=== PATIENT | female | born 1980 | race Caucasian/White ===

== ENCOUNTER 2016-09-14 21:33 | Emergency (ER) | payer OTHER ==
[~2016-09-14] VITALS: Ht 170.2 cm; Wt 103.2 kg
[~2016-09-14 21:33] MED LIST: PRENTAB26 PO
[2016-09-14 21:39] VITALS: TEMP 37.5; Ht 170.2 cm; Wt 103.2 kg
[2016-09-14] MEDS ORDERED: DiphenhydrAMINE HCL 50 MG/ML VIAL IV STA (22:00)
[2016-09-14] MEDS ORDERED: MoRPHine SULFATE 10 MG/ML CARP/VIAL IV STA (22:00)
[2016-09-14] MEDS ORDERED: SODIUM CHLORIDE 0.9% 1000ML 1,000 ML IV ONE (22:00)
[2016-09-14] MEDS ORDERED: METHYLPREDNISOLONE 125 MG VIAL IV STA (22:00)
[2016-09-14 22:11] LABS: BASO % 0.2 %; BASO ABS # 0.02 K/uL (0-0.2); COMPLETE YES; EOS % 1.5 %; HEMATOCRIT 41.2 % (37-47); IG% 0.2 %; LYMPH % 20.1 %; LYMPH ABS # 1.84 K/uL (1.2-3.4); MEAN CELL VOLUME 82.7 fL (80-100); MEAN CORPUSCULAR HEMOGLOBIN 28.5 pg (25-34); MEAN CORPUSCULAR HGB CONC 34.5 g/dl (32-36); MEAN PLATELET VOLUME 9.5 fL (7.4-10.4); MONO % 8.2 %; NEUT % 69.8 %; PLATELET COUNT 245 K/uL (130-400); RED BLOOD COUNT 4.98 M/uL (4.2-5.4); WHITE BLOOD COUNT 9.14 K/uL (4.8-10.8)
[2016-09-14] MEDS ORDERED: NITROGLYCERIN 0.4% PO (22:27)
[2016-09-14] MEDS ORDERED: IBUP-1450 PO (22:27)
[2016-09-14] MEDS ORDERED: MULT-513 PO (22:27)
[2016-09-14] MEDS ORDERED: MISCCAP80 PO (22:27)
[2016-09-14 22:31] LABS: BUN/CREATININE RATIO 12.4 (10-20); CALCIUM 9.1 mg/dl (8.5-10.1); CREATININE 0.99 mg/dl (0.60-1.20); POTASSIUM 3.5 mmol/L (3.5-5.1)
[2016-09-14] MEDS ORDERED: OXYCODONE IR HOME PACK PO ONE (23:45)
[2016-09-14] MEDS ORDERED: LIDOCAINE HCL 2% JELLY 30 ML TUBE EXT ONE (23:45)
[2016-09-14] MEDS ORDERED: PRED50TA PO (23:47)
[2016-09-14] MEDS ORDERED: OXYC1TAB3 PO (23:47)
[2016-09-14 23:49] VITALS: BP 119/69; PULSE 82; O2SAT 98
--- NOTE | 2016-09-15 03:31 | EMERGENCY ROOM VISIT NOTE ---
History First contact with patient: 21:47 Chief Complaint: RECTAL PAIN Stated Complaint: PAIN FROM RECTAL FISSURE Nursing Triage Summary: Patient reports seeing her PCP yesterday for an anal fissure. Patient was given an ointment for on it. Patient began using the ointment and tucks pads for relief. Patient's labia started swelling today and she has noted reddened and raised lumps on them. Patient very anxious, states "I feel like I'm gonna loose my shit right now. I am in so much pain it's ridiculous." No vaginal discharge or bleeding noted. History of Present Illness The patient is a 36 year old female who presents to the Emergency Room with complaints of rectal pain for the past week. The patient has a history of anal fissures in the past, and states that she has had similar consistent with this past week. She went to her primary care physician yesterday, where it was confirmed that she had an anal fissure. She was given a nitroglycerin based cream for her symptoms. The patient has been using this, Desitin, tucks, sitz baths, and a and D ointment. She states today she developed labial pain and swelling. The patient rates her overall discomfort a 10/10. She is not experiencing chest pain, chest tightness, shortness of breath, or abdominal pain. Her symptoms worsen with bowel movements and palpation in the area. She does not identify alleviating factors. Review of Systems More than 10 systems were reviewed and otherwise negative with the exception of history of present illness. Past Medical/Surgical History No chronic medical disease Family History No pertinent family history Social History Smoking Status: Never Smoker Housing Status: lives with family Occupation Status: employed Current/Historical Medications Scheduled Multivitamins/Minerals (Mvi With Minerals), 1 TAB PO WK Oxycodone Immediate Rel Tab (Roxicodone Ir), 1-2 TAB PO Q6 Prednisone (Prednisone), 50 MG PO DAILY Probiotic Product (Probiotic), 1 CAP PO DAILY [Nitro 0.4% Rectal Cr], 1 APPLN PO BID Scheduled PRN Ibuprofen (Motrin), 600 MG PO Q6H PRN for Pain Physical Exam Vital Signs Date Time Temp Pulse Resp B/P (MAP) Pulse Ox O2 Delivery O2 Flow Rate FiO2 09/14/16 23:49 82 17 119/69 98 09/14/16 23:20 82 16 119/69 97 Room Air 09/14/16 21:39 37.5 125 18 144/94 99 Room Air Pain Rating (0-10): 4.0 Physical Exam VITALS: Vitals are noted on the nurse's note and reviewed by myself. Vital signs stable. GENERAL: Well-developed, well-nourished, white female who appears quite uncomfortable on examination. HEART: Regular rate and rhythm without murmurs gallops or rubs. LUNGS: Clear to auscultation bilaterally without wheezes, rales or rhonchi. No retractions or accessory muscle use. ABDOMEN: Positive normal bowel sounds x 4. Soft, nontender, without masses or organomegaly. No guarding or rebound tenderness. : Examination was performed in the presence of female nurse sampling theory teacher. The perianal region is with obvious fissure at 6:00 measuring approximately 3-4 mm in length. There is no active bleeding or hemorrhoids. The bilateral labia's are erythematous with the left being slightly edematous. These areas are tender on palpation without obvious abscess. This is most concerning for a contact dermatitis. No other lesions or ulcerations were appreciated. MUSCULOSKELETAL: No muscle atrophy, erythema, or edema noted. Full range of motion without joint tenderness in all extremities. Medical Decision & Procedures Laboratory Results 09/14/16 22:01 Red Blood Count 4.98, Mean Corpuscular Volume 82.7, Mean Corpuscular Hemoglobin 28.5, Mean Corpuscular Hemoglobin Concent 34.5, Mean Platelet Volume 9.5, Neutrophils (%) (Auto) 69.8, Lymphocytes (%) (Auto) 20.1, Monocytes (%) (Auto) 8.2, Eosinophils (%) (Auto) 1.5, Basophils (%) (Auto) 0.2, Neutrophils # (Auto) 6.37, Lymphocytes # (Auto) 1.84, Monocytes # (Auto) 0.75, Eosinophils # (Auto) 0.14, Basophils # (Auto) 0.02 09/14/16 22:01 Test 09/14/16 22:01 White Blood Count 9.14 K/uL (4.8-10.8) Red Blood Count 4.98 M/uL (4.2-5.4) Hemoglobin 14.2 g/dL (12.0-16.0) Hematocrit 41.2 % (37-47) Mean Corpuscular Volume 82.7 fL (80-100) Mean Corpuscular Hemoglobin 28.5 pg (25-34) Mean Corpuscular Hemoglobin Concent 34.5 g/dl (32-36) Platelet Count 245 K/uL (130-400) Mean Platelet Volume 9.5 fL (7.4-10.4) Neutrophils (%) (Auto) 69.8 % Lymphocytes (%) (Auto) 20.1 % Monocytes (%) (Auto) 8.2 % Eosinophils (%) (Auto) 1.5 % Basophils (%) (Auto) 0.2 % Neutrophils # (Auto) 6.37 K/uL (1.4-6.5) Lymphocytes # (Auto) 1.84 K/uL (1.2-3.4) Monocytes # (Auto) 0.75 K/uL (0.11-0.59) Eosinophils # (Auto) 0.14 K/uL (0-0.5) Basophils # (Auto) 0.02 K/uL (0-0.2) RDW Standard Deviation 40.0 fL (36.4-46.3) RDW Coefficient of Variation 13.3 % (11.5-14.5) Immature Granulocyte % (Auto) 0.2 % Immature Granulocyte # (Auto) 0.02 K/uL (0.00-0.02) Anion Gap 11.0 mmol/L (3-11) Est Creatinine Clear Calc Drug Dose 96.1 ml/min Estimated GFR () 84.4 Estimated GFR (Non- 72.8 BUN/Creatinine Ratio 12.4 (10-20) Calcium Level 9.1 mg/dl (8.5-10.1) Total Bilirubin 0.6 mg/dl (0.2-1) Aspartate Amino Transf (AST/SGOT) 14 U/L (15-37) Alanine Aminotransferase (ALT/SGPT) 24 U/L (12-78) Alkaline Phosphatase 103 U/L (45-117) Total Protein 7.7 gm/dl (6.4-8.2) Albumin 3.8 gm/dl (3.4-5.0) Globulin 3.9 gm/dl (2.5-4.0) Albumin/Globulin Ratio 1.0 (0.9-2) Medications Administered Medications (Trade) Dose Ordered Sig/Joss Route Start Time Stop Time Status Last Admin Dose Admin Diphenhydramine HCl (Benadryl Inj) 25 mg NOW STAT IV 09/14/16 22:00 09/14/16 22:01 DC 09/14/16 22:19 25 MG Morphine Sulfate (MoRPHine SULFATE INJ) 8 mg NOW STAT IV 09/14/16 22:00 09/14/16 22:01 DC 09/14/16 22:20 8 MG Sodium Chloride 1,000 ml @ 999 mls/hr Q1H1M ONCE IV 09/14/16 22:00 09/14/16 23:00 DC 09/14/16 22:19 999 MLS/HR Methylprednisolone Sodium Succinate (Solu-Medrol IV) 125 mg NOW STAT IV 09/14/16 22:00 09/14/16 22:01 DC 09/14/16 22:20 125 MG Lidocaine HCl (Xylocaine Jelly 2%) 30 ml NOW ONCE EXT 09/14/16 23:45 09/14/16 23:46 DC 09/14/16 23:50 30 ML Oxycodone HCl (Roxicodone Immediate Rel 5MG Home Pack) 1 homepack UD ONCE PO 09/14/16 23:45 09/14/16 23:46 DC 09/14/16 23:51 1 HOMEPACK ED Course Physical exam and history were performed. Nursing notes, EMR, and Medication List were personally reviewed. Patient appears to have both an anal fissure as well as irritation of her labia' s. The patient is quite uncomfortable on examination. She is afebrile and has been using multiple treatments for her symptoms. On examination my concern is that she has a contact dermatitis from one of her home remedies causing her labial irritation. IV access was established and labs were obtained. The patient was hydrated with normal saline and given IV morphine, IV Benadryl, and IV Solu-Medrol. The patient's blood work is as above and was reviewed. She does not have a slightly elevated white blood cell count, gross anemia, bandemia, or significant electrolyte imbalance. On repeat exam the patient felt much better after the above interventions. Her pain was down to a 4 and she was much more relaxed. She reported decreased pain and swelling in her labia. I overall feel the patient is stable for discharge home. I suspect that much of her symptoms are related to the anal fissure and a contact dermatitis from the treatment utilized to help this. I will provide her a small amount of lidocaine gel for symptomatic care of her fissure. We'll also give her OxyIR and a course of steroids. The patient will need to have close follow-up with her primary care physician. Evidently she also has an upcoming appointment with GI, and this is appropriate as well. The patient was certainly invited back to the ER with any new, worsening, or concerning symptoms. She voiced understanding and was discharged home under the care of her who is acting as the otr refrigerated cdl truck driver today. The chart was completed utilizing [employer] Speech Voice Recognition Software. Grammatical errors, random word insertions, pronoun errors, and incomplete sentences are an occasional consequence of this system due to software limitations, ambient noise, and hardware issues. Any formal questions or concerns about the content, text, or information contained within the body of this dictation should be directly addressed to the provider for clarification. . Medical Decision Differential diagnosis includes, but is not limited to: Laceration, abrasion, foreign body, fistula, pilonidal abscess, contact dermatitis, [employer]YWALL [employer]IC etiology, and others Medication Reconcilliation Current Medication List: was personally reviewed by me Blood Pressure Screening Blood pressure disposition: Elevated BP felt to be situational Impression Primary Impression: Acute anal fissure Additional Impression: Contact dermatitis Departure Information Dispostion Home / Self-Care Condition GOOD Prescriptions Prednisone (Prednisone) 50 Mg Tab 50 MG PO DAILY for 4 Days, #4 TAB Prov: Kevin Virk PA-C 09/14/16 Oxycodone Immediate Rel Tab (ROXICODONE IR) 5 Mg Tab 1-2 TAB PO Q6 for Pain, #24 TAB Prov: Kevin Virk PA-C 09/14/16 Forms HOME CARE DOCUMENTATION FORM, Work Instructions, Additional Instructions: Patient was seen and evaluated today in the emergency department fo medical care. Return to work on 09/17/2016. Please excuse. IMPORTANT VISIT INFORMATION Patient Instructions [facility] Additional Instructions You were seen and evaluated today on an emergency basis only. This is not a substitute for, or an effort to provide, complete comprehensive medical care. It is not possible to recognize and treat all injuries or illnesses in a single emergency department visit. For this reason it is recommended that you followup with your primary care physician and gastroenterology this week for further care and management. For baseline pain relief you may alternate ibuprofen and acetaminophen every 4 hours for pain control. Take 600 mg ibuprofen (Advil) and then 4 hours later take 1000 mg acetaminophen (Tylenol). Do not take more than 3000 mg acetaminophen in a single day. Oxycodone (OxyIR) 5mg: Take ONE or TWO pills every SIX hours for breakthrough pain. Avoid alcohol, operating machinery or dangerous equipment, working on ladders or roofs, DRIVING, or situations where being under the influence may be dangerous. It is recommended to use an [id number] stool softener such as Colace, 100mg twice daily while taking this medication to avoid constipation. You may apply lidocaine jelly 3 times daily as needed. Use mycd-rbn-upsnqhs Benadryl 50 mg every 6 hours Take prednisone as prescribed for the next 4 days You are welcome to return to the emergency department anytime with new, worsening, or concerning symptoms. Work Instructions Additional Work Instructions: Patient was seen and evaluated today in the emergency department for medical care. Return to work on 09/17/2016. Please excuse. Problem Qualifiers
[2016-12-05] MEDS ORDERED: MULT-506 PO (08:37)
== END 2016-09-14 23:54 | disposition home or self-care (01) ==
LOC: C.EDB 21:34 → C.EDC 23:54
DX: K60.0 Acute anal fissure (principal); L25.9 Unspecified contact dermatitis, unspecified cause

== ENCOUNTER → 2016-10-22 | Outpatient (CLI) | payer OTHER ==
[~2016-10-22] MED LIST changes: +IBUP-1450 PO; +MISCCAP80 PO; +MULT-506 PO; +MULT-513 PO; +NITROGLYCERIN 0.4% PO; +OXYC1TAB3 PO; -PRENTAB26 PO
== END | disposition home or self-care (01) ==
LOC: C.LABSPEC 17:44
PROVIDERS: ATTEND Physician Assistant
DX: L29.8 Other pruritus (principal)

== ENCOUNTER → 2017-01-19 | Day surgery (SDC) | payer OTHER ==
[2016-12-05 08:37] VITALS: Ht 171.5 cm; Wt 102.3 kg
[~2017-01-19] VITALS: Ht 171.5 cm; Wt 102.3 kg
[~2017-01-19] MED LIST changes: -IBUP-1450 PO; -MISCCAP80 PO; -MULT-513 PO; -NITROGLYCERIN 0.4% PO; -OXYC1TAB3 PO; +PROPOFOL IV EMULSION 10 MG/ML 20 ML VIAL IV ONE
--- NOTE | 2017-01-19 13:19 | Endo History and Physical ---
History & Physical Date of Service: Jan 19, 2017. Chief Complaint: Diarrhea Referring Physician: Dr. Fatou Bernstein History of Present Illness 36 yo CF who presents for colonoscopy secondary to diarrhea. Past Surgical History Hx Cardiac Surgery: No Hx Internal Defibrillator: No Hx Pacemaker: No Hx Abdominal Surgery: No Hx of Implantable Prosthesis: No Hx Post-Op Nausea and Vomiting: No Hx Cancer Surgery: No Hx Thoracic Surgery: No Hx Orthopedic: No Hx Urinary Tract Surgery: No Family History Colon CA, Polyp Social History Smoking Status: Never Smoker Hx Substance Use: No Allergies Coded Allergies: Penicillins (Verified Allergy, Intermediate, HIVES, 12/05/16) Current Medications Reported Home Medications Medications Dose Route/Sig Max Daily Dose Days Date Category Multivitamin (Multivitamins) Tab 1 Tab PO 2XWK 12/05/16 Reported Vital Signs Weight (Kilograms): 102.27 Height (Feet): 5 Height (Inches): 7.5 Date Time Temp Pulse Resp B/P (MAP) Pulse Ox O2 Delivery O2 Flow Rate FiO2 01/19/17 12:58 37 100 18 149/81 (103) 99 Room Air Physical Exam General Appearance: WD/WN, no apparent distress Respiratory/Chest: Auscultation: breath sounds normal Cardiovascular: Heart Auscultation: RRR Abdomen: Bowel Sounds: normal Inspection & Palpation: soft, non-distended, no tenderness, guarding & rebound Assessment and Plan Assessment: 36 yo CF who presents for colonoscopy secondary to diarrhea. Plan: Proceed with colonoscopy.
--- NOTE | 2017-01-19 14:01 | Discharge Instructions ---
Endoscopy Patient Instructions Date / Procedure(s) Performed Jan 19, 2017. Colonoscopy Allergy Information Coded Allergies: Penicillins (Verified Allergy, Intermediate, HIVES, 12/05/16) Discharge Date / Findings Jan 19, 2017. Random colon biopsies Stool aspirate collected Internal hemorrhoids Medication Instructions Stopped Medication(s): mvi OK to resume all medications today as prescribed Reported Home Medications Medications Dose Route/Sig Max Daily Dose Days Date Category Multivitamin (Multivitamins) Tab 1 Tab PO 2XWK 12/05/16 Reported Provider Instructions Activity Restrictions - No exercising or heavy lifting for 24 hours. - Do not drink alcohol the day of the procedure. - Do not drive a car or operate machinery until the day after the procedure. - Do not make any important decisions or sign important papers in 24 hours after the procedure. Following Day: - Return to full activity which may include returning to work/school. Diet Start your diet with liquids and light foods (jello, soup, juice, toast). Then eat your usual diet if not nauseated. Treatment For Common After Affects For mild abdominal pain, bloating, or excessive gas: - Rest - Eat lightly - Lie on right side Follow-Up Information Follow-up with Dr. Fatou Bernstein as scheduled Anesthesia Information What You Should Know You have had a procedure that required some medicine to reduce anxiety and discomfort. This treatment is called moderate sedation. After receiving the treatment, you may be sleepy, but you will be able to breathe on your own. The effects of the treatment may last for several hours. Follow these instructions along with Activity/Diet recommendations noted above: * Do NOT do anything where dizziness or clumsiness would be dangerous. * Rest quietly at home today, then you can be up and about tomorrow. * Have a responsible person stay with you the rest of today. * You may have had an I.V. today. If so, you may take the dressing off later today. Recommendations Call your doctor if: * Trouble breathing * Continuous vomiting for more than 24 hours * Temperature above 101 degrees * Severe abdominal pain or bloating * Pain not relieved by pain medicine ordered * There is increased drainage or redness from any incision * A large amount of rectal bleeding greater than 2-3 tablespoons. (If you had a polyp/s removed or have hemorrhoids, a small amount of blood - from the rectum is to be expected.) * You have any unanswered questions or concerns. IN THE EVENT OF A SERIOUS EMERGENCY, GO TO THE NEAREST EMERGENCY ROOM Your discharge instructions were prepared by provider Dayne Dean. Patient Instructions Signature Page Mae Jones Patient (or Guardian) Signature/Date: I have read and understand the instructions given to me by my caregivers. Caregiver/RN/Doctor Signature/Date: The above-named patient and/or guardian has received patient instructions on this date. + Original Patient Signature Page (only) stays with chart. Please make copy for patient.
--- NOTE | 2017-01-19 14:13 | GI REPORT ---
Procedure Date: 01/19/2017 1:28 PM Procedure: Colonoscopy Indications: Chronic diarrhea Medicines: Monitored Anesthesia Care Complications: No immediate complications. Estimated Blood Loss: Estimated blood loss: none. Procedure: Pre-Anesthesia Assessment: - Prior to the procedure, a History and Physical was performed, and patient medications and allergies were reviewed. The patient's tolerance of previous anesthesia was also reviewed. The risks and benefits of the procedure and the sedation options and risks were discussed with the patient. All questions were answered, and informed consent was obtained. Prior Anticoagulants: The patient has taken no previous anticoagulant or antiplatelet agents. ASA Grade Assessment: II - A patient with mild systemic disease. After reviewing the risks and benefits, the patient was deemed in satisfactory condition to undergo the procedure. After I obtained informed consent, the scope was passed under direct vision. Throughout the procedure, the patient's blood pressure, pulse, and oxygen saturations were monitored continuously. The scope was introduced through the anus and advanced to the terminal ileum. The colonoscopy was performed without difficulty. The patient tolerated the procedure well. The quality of the bowel preparation was good. The terminal ileum, ileocecal valve, appendiceal orifice, and rectum were photographed. Findings: The perianal and digital rectal examinations were normal. Non-bleeding internal hemorrhoids were found during retroflexion. The hemorrhoids were small. Several random biopsies were obtained with cold forceps for histology in the entire colon. Fluid aspiration for cytology was performed in the entire colon. Impression: - Non-bleeding internal hemorrhoids. - Several random biopsies were obtained in the entire colon. - Fluid aspiration was performed. Recommendation: - Resume previous diet. - Continue present medications. - Repeat colonoscopy for surveillance based on pathology results. - Return to primary care physician as previously scheduled. Dayne Dean DO 01/19/2017 2:13:10 PM This report has been signed electronically. Note Initiated On: 01/19/2017 1:28 PM I attest to the content of the Intraoperative Record and orders documented therein, exceptions below
[2017-01-19 14:25] VITALS: BP 117/90; PULSE 90; O2SAT 97
--- NOTE | 2017-01-19 14:41 | Anesthesiology Progress Note ---
Anesthesia Post Op Note Date & Time Jan 19, 2017 at 14:40 Vital Signs Pain Intensity: 0 Vital Signs Past 12 Hours Date Time Temp Pulse Resp B/P (MAP) Pulse Ox O2 Delivery O2 Flow Rate FiO2 01/19/17 14:25 90 16 117/90 (99) 97 Room Air 01/19/17 14:10 83 16 125/70 (88) 95 Room Air 01/19/17 13:55 80 16 120/77 (91) 97 Room Air 01/19/17 12:58 37 100 18 149/81 (103) 99 Room Air Notes Mental Status: alert / awake / arousable, participated in evaluation Pt Amnestic to Procedure: Yes Nausea / Vomiting: adequately controlled Pain: adequately controlled Airway Patency, RR, SpO2: stable & adequate BP & HR: stable & adequate Hydration State: stable & adequate Anesthetic Complications: no major complications apparent
== END | disposition home or self-care (01) ==
LOC: C.GI 12:32
PROVIDERS: ATTEND Internal Medicine
DX: K52.9 Noninfective gastroenteritis and colitis, unspecified (principal); K64.8 Other hemorrhoids; Z80.0 Family history of malignant neoplasm of digestive organs

== ENCOUNTER → 2017-09-14 | Outpatient (CLI) | payer OTHER ==
[~2017-09-14] MED LIST changes: +CIPR1TAB10 PO; -MULT-506 PO; +OXYC7.5T65 PO; +PHEN-775 PO; -PROPOFOL IV EMULSION 10 MG/ML 20 ML VIAL IV ONE; +SACC250C PO; +SULI200T4 PO; +TAMS0.4C38 PO
--- NOTE | 2017-09-14 12:26 | DIAGNOSTIC IMAGING REPORT ---
KUB CLINICAL HISTORY: Nephrolithiasis. COMPARISON STUDY: CT of the abdomen and pelvis September 03, 2017 and KUB September 05, 2017. FINDINGS: A right ureteral stent is in place. A 4 mm calculus/fragment is noted within the proximal right ureter or ureteropelvic junction. No additional ureteral calculi or fragments are noted. Calculus burden is diminished when compared to exam of September 05, 2017. A 3 mm calculus within lower pole of the left kidney is noted. There may be calculi/fragments within the lower pole of the right kidney. IMPRESSION: 1. Right ureteral stent in place. 4 mm calculus/fragment within the proximal right ureter. No additional ureteral calculi or fragments. 2. Interval decrease in calculus burden since exam of September 05, 2017. Equivocal fragments within lower pole of the right kidney. 4. 3 mm left renal calculus. Electronically signed by: Andrey Najera M.D. 09/14/2017 12:24 PM Dictated Date/Time: 09/14/2017 12:22 PM
== END | disposition home or self-care (01) ==
LOC: C.RAD 10:18
PROVIDERS: ATTEND Urology
DX: N20.2 Calculus of kidney with calculus of ureter (principal)

== ENCOUNTER → 2017-09-17 | Outpatient (CLI) | payer OTHER ==
[~2017-09-17] MED LIST changes: +KETO10TA PO
== END | disposition home or self-care (01) ==
LOC: C.LAB 13:19
PROVIDERS: ATTEND Nurse Practitioner Adult Health
DX: R39.15 Urgency of urination (principal)

== ENCOUNTER → 2017-09-18 | Outpatient (CLI) | payer OTHER ==
--- NOTE | 2017-09-18 16:01 | DIAGNOSTIC IMAGING REPORT ---
KUB CLINICAL HISTORY: Ureteral calculus COMPARISON STUDY: 09/14/2017 FINDINGS: There has been interval removal of the right-sided nephroureteral stent. There is no pathologic bowel dilatation. There is a 3 mm calcific density projected over the right L3 transverse process. A small ureteral calculus cannot be excluded. The renal shadows are partially obscured overlying bowel gas and fecal material. There is a 2 mm lower pole left renal calculus. IMPRESSION: 1. No evidence of pathologic bowel dilatation 2. Left-sided nephrolithiasis 3. Interval removal of the right-sided neck ureteral stent 4. Nonspecific 3 mm calcific density projected over the right L3 transverse process. A ureteral calculus cannot be excluded. Electronically signed by: Steven Taylor M.D. 09/18/2017 4:00 PM Dictated Date/Time: 09/18/2017 3:59 PM
--- NOTE | 2017-09-18 16:36 | DIAGNOSTIC IMAGING REPORT ---
RENAL ULTRASOUND CLINICAL HISTORY: Ureteral stone. COMPARISON STUDY: CT of the abdomen and pelvis September 03, 2017 and KUB September 14, 2017. TECHNIQUE: Sonography of the kidneys and the urinary bladder was performed. FINDINGS: Moderate right hydronephrosis is noted. There is no left hydronephrosis. The right kidney measures 13 cm in maximal dimension and the left measures 13 cm as well. There is no left hydronephrosis. Both ureteral jets were identified. A few left renal calculi measure up to 3 mm. Right renal calculus is noted. There may be a 4 mm proximal right ureteral calculus. IMPRESSION: 1. Moderate right hydronephrosis with a suspected 4 mm proximal right ureteral calculus. 2. Bilateral nephrolithiasis. Electronically signed by: Andrey Najera M.D. 09/18/2017 4:34 PM Dictated Date/Time: 09/18/2017 4:32 PM
== END | disposition home or self-care (01) ==
LOC: C.ULTR 15:27
PROVIDERS: ATTEND Urology
DX: N20.1 Calculus of ureter (principal); N20.0 Calculus of kidney

== ENCOUNTER → 2017-09-25 | Day surgery (SDC) | payer OTHER ==
[2017-09-24 10:58] VITALS: Ht 170.2 cm; Wt 104.0 kg
--- NOTE | 2017-09-24 20:02 | DIAGNOSTIC IMAGING REPORT ---
KUB CLINICAL HISTORY: Nephrolithiasis. FINDINGS: 3 AP supine abdominal radiographs are compared to study dated 09/18/2017 and correlated with abdominal CT dated 09/03/2017. 2 small calculi in the right proximal ureter are identified and measure up to 3 mm. This is located between the transverse processes of L2 and L3. An additional 4 mm nonobstructing calculus projects over the lower pole of the left kidney. No bowel obstruction is seen. The bony structures appear intact. IMPRESSION: 1. There are 2 small right proximal ureteral calculi. 2. A nonobstructing left renal calculus is unchanged. Electronically signed by: Raleigh Hinkle M.D. 09/24/2017 8:00 PM Dictated Date/Time: 09/24/2017 7:58 PM
[~2017-09-25] VITALS: Ht 170.2 cm; Wt 104.0 kg
[~2017-09-25] MED LIST changes: +ATROPINE SULFATE 0.1 MG/ML 5ML SYR IV PRN; +CHECK SCOPOLAMINE PATCH PLACEMENT SCH; -CIPR1TAB10 PO; +CIPROFLOXACIN / D5W 400 MG IV SCH; +DEXAMETHASONE SOD INJ 4 MG/ML VIAL ONE; +EpHEDrine SULFATE INJ 50 MG/ML AMP IV PRN; +FENTANYL CITRATE INJ 50 MCG/1 ML 2 ML VIAL IV PRN; +FENTANYL CITRATE INJ 50 MCG/1 ML 2 ML VIAL ONE; +FLUMAZENIL 0.1 MG/1 ML 10 ML VIAL IV PRN; +LABETALOL HCL IV 5 MG/ML 20ML IV PRN; +LIDOCAINE HCL 2% 2 ML VIAL (20MG/ML) ONE; +MIDAZOLAM HCL 1 MG/ML 2ML VIAL ONE; +NALOXONE HCL 0.4 MG/1 ML VIAL/CARP IV PRN; +ONDANSETRON INJ 2 MG/ML 2 ML VIAL IV PRN; +ONDANSETRON INJ 2 MG/ML 2 ML VIAL ONE; -OXYC7.5T65 PO; -PHEN-775 PO; +PROMETHAZINE HCL INJ 12.5 MG in SODIUM CHLORIDE 0.9% 50ML 50 ML IV PRN; +PROPOFOL IV EMULSION 10 MG/ML 20 ML VIAL ONE; +SCOPOLAMINE 1.5 MG TDSY TD ONE; +SCOPOLAMINE 1.5 MG TDSY TD SCH; -SULI200T4 PO
--- NOTE | 2017-09-25 08:09 | History & Physical Bridge - SC ---
H&P Re-Evaluation Bridge Note: I have examined the patient, reviewed the History & Physical and in the interval since the performance of the History & Physical I have noted the following changes of clinical significance: No changes noted
--- NOTE | 2017-09-25 09:24 | [facility] Post Operative Brief Note ---
Immediate Operative Summary Operative Date Sep 25, 2017. Pre-Operative Diagnosis Right Ureteral stone Post-Operative Diagnosis Same as pre-op Procedure(s) Performed Right Ureteral Extracorporeal Shock Wave Lithotripsy Surgeon Cardiology Fellow Surgeon(s) None Estimated Blood Loss Zero Findings Consistent with Post-Op Diagnosis Specimens None Anesthesia Type General
--- NOTE | 2017-09-25 09:28 | Discharge Instructions ---
Discharge Instructions Date of Service Sep 25, 2017. Visit Reason for Visit: Stones Discharge Discharge Diagnosis / Problem: post op r ureter Discharge Goals Goal(s): Decrease discomfort, Improve disease control Activity Recommendations Activity Limitations: resume your previous activity Anesthesia . Post Anesthesia Instructions: If you have had General Anesthesia or IV Sedation: * Do not drive today. * Resume driving when surgeon permits. * Do not make important decisions or sign legal documents today. * Call surgeon for: 1. Temperature elevations greater than 101 degrees F. 2. Uncontrollable pain. 3. Excessive bleeding. 4. Persistent nausea and vomiting. 5. Medication intolerance (nausea, vomiting or rash). * For nausea and vomiting use only clear liquids such as: tea, soda, bouillon until nausea subsides, then gradually increase diet as tolerated. * If you have any concerns or questions, call your surgeon's office. If physician is unavailable and it is an emergency, call 911 or go to the nearest emergency room. . Diet Recommendations Recommended Home Diet: resume previous diet Procedures Procedures Performed: Right Ureteral Extracorporeal Shock Wave Lithotripsy Pending Studies Studies pending at discharge: no Medical Emergencies . Who to Call and When: Medical Emergencies: If at any time you feel your situation is an emergency, please call 911 immediately. . Non-Emergent Contact Non-Emergency issues call your: Urologist Call Non-Emergent contact if: temperature is above 101, your pain is not controlled . . "Provider Documentation" section prepared by Bola Braden. .
--- NOTE | 2017-09-25 10:16 | Anesthesia Progress Nt - [facility] ---
Anesthesia Post Op Note Date & Time Sep 25, 2017 at 10:16 Vital Signs Pain Intensity: 5.0 Vital Signs Past 12 Hours Date Time Temp Pulse Resp B/P (MAP) Pulse Ox O2 Delivery O2 Flow Rate FiO2 09/25/17 10:11 135/88 09/25/17 10:09 83 20 09/25/17 10:09 85 20 96 09/25/17 10:08 127/83 09/25/17 10:04 70 15 98 09/25/17 10:04 72 15 09/25/17 10:01 129/88 09/25/17 09:59 70 14 09/25/17 09:59 70 14 98 09/25/17 09:56 122/81 09/25/17 09:54 71 13 09/25/17 09:54 70 13 99 09/25/17 09:51 126/82 09/25/17 09:49 75 17 09/25/17 09:49 76 17 99 09/25/17 09:47 135/89 09/25/17 09:44 75 16 99 09/25/17 09:44 74 16 09/25/17 09:41 115/81 09/25/17 09:39 84 17 09/25/17 09:39 87 17 97 09/25/17 09:36 119/86 09/25/17 09:34 80 12 99 09/25/17 09:34 79 12 09/25/17 09:31 129/81 09/25/17 09:30 124/78 09/25/17 09:29 36.2 86 16 124/78 98 Mask 5 09/25/17 06:33 36.8 96 16 158/83 (108) 98 Room Air Notes Mental Status: alert / awake / arousable, participated in evaluation Pt Amnestic to Procedure: Yes Nausea / Vomiting: adequately controlled Pain: adequately controlled Airway Patency, RR, SpO2: stable & adequate BP & HR: stable & adequate Hydration State: stable & adequate Anesthetic Complications: no major complications apparent
[2017-09-25 10:30] VITALS: TEMP 36.8
[2017-09-25 10:55] VITALS: BP 120/73; PULSE 79; O2SAT 98
--- NOTE | 2017-09-28 18:12 | OPERATIVE REPORT ---
DATE OF OPERATION: 09/25/2017 PREOPERATIVE DIAGNOSIS: Right ureteral stone. POSTOPERATIVE DIAGNOSIS: Same. PROCEDURE PERFORMED: Right extracorporeal shockwave lithotripsy, ureteral. SURGEON: Bola Braden MD. ANESTHESIA: General. INDICATIONS: The patient is a 37-year-old female with a right ureteral stone here for ESWL. DESCRIPTION OF THE PROCEDURE: The patient was taken to the cystoscopy suite where she had been given preoperative antibiotics, and Venodyne stockings were placed. She was given general anesthesia. The stone was visualized in 2 views. The patient received 3000 shocks, the majority at level 5. At the end of the procedure, she was transferred to the recovery room in stable condition. I attest to the content of the Intraoperative Record and any orders documented therein. Any exception s are noted below.
== END | disposition home or self-care (01) ==
LOC: X.SURG 06:23
PROVIDERS: ATTEND Urology
DX: N20.1 Calculus of ureter (principal); E66.9 Obesity, unspecified; Z68.35 Body mass index [BMI] 35.0-35.9, adult; Z86.718 Personal history of other venous thrombosis and embolism; Z88.0 Allergy status to penicillin

== ENCOUNTER → 2017-10-07 | Outpatient (CLI) | payer OTHER ==
[~2017-10-07] MED LIST changes: -ATROPINE SULFATE 0.1 MG/ML 5ML SYR IV PRN; -CHECK SCOPOLAMINE PATCH PLACEMENT SCH; -CIPROFLOXACIN / D5W 400 MG IV SCH; -DEXAMETHASONE SOD INJ 4 MG/ML VIAL ONE; -EpHEDrine SULFATE INJ 50 MG/ML AMP IV PRN; -FENTANYL CITRATE INJ 50 MCG/1 ML 2 ML VIAL IV PRN; -FENTANYL CITRATE INJ 50 MCG/1 ML 2 ML VIAL ONE; -FLUMAZENIL 0.1 MG/1 ML 10 ML VIAL IV PRN; -KETO10TA PO; -LABETALOL HCL IV 5 MG/ML 20ML IV PRN; -LIDOCAINE HCL 2% 2 ML VIAL (20MG/ML) ONE; -MIDAZOLAM HCL 1 MG/ML 2ML VIAL ONE; -NALOXONE HCL 0.4 MG/1 ML VIAL/CARP IV PRN; -ONDANSETRON INJ 2 MG/ML 2 ML VIAL IV PRN; -ONDANSETRON INJ 2 MG/ML 2 ML VIAL ONE; -PROMETHAZINE HCL INJ 12.5 MG in SODIUM CHLORIDE 0.9% 50ML 50 ML IV PRN; -PROPOFOL IV EMULSION 10 MG/ML 20 ML VIAL ONE; -SCOPOLAMINE 1.5 MG TDSY TD ONE; -SCOPOLAMINE 1.5 MG TDSY TD SCH
--- NOTE | 2017-10-07 10:29 | DIAGNOSTIC IMAGING REPORT ---
KUB CLINICAL HISTORY: 37 years-old Female presenting with N20.0 Nephrolithiasis. TECHNIQUE: Single supine view of the abdomen was obtained. COMPARISON: 09/24/[address] from 09/03/2017. FINDINGS: Possibly of small bowel gas, nonspecific. Moderate stool burden in the right colon. 2 adjacent small calculi again evident in the proximal right ureter projecting over the level of L3. Nonobstructing left renal calculus at the lower pole as well as a second one at the upper pole. No left ureteral calculi. Osseous structures normal. Lung bases clear. IMPRESSION: 1. Unchanged adjacent proximal right ureteral calculi at the level of L3. 2. Left nephrolithiasis. Electronically signed by: Richard Hammond M.D. 10/07/2017 10:28 AM Dictated Date/Time: 10/07/2017 10:25 AM
--- NOTE | 2017-10-07 11:30 | DIAGNOSTIC IMAGING REPORT ---
(VAZQUEZ/BLAD)RETROPERITON COMP CLINICAL HISTORY: 37 years-old Female presenting with N20.0 Nephrolithiasis. TECHNIQUE: Real-time grayscale and limited color Doppler ultrasound imaging of the kidneys and bladder was performed. COMPARISON: 09/18/[address] from 09/03/2017. FINDINGS: Right kidney: Normal echogenicity of renal parenchyma. Right kidney measures 12.0 cm. Mild pelviectasis, which represents a significant improvement since the CT from 09/03/2017 and ultrasound from 09/18/2017. This is not overly convincing for hydronephrosis and may represent residual flaccid collecting system. No convincing evidence of calculus or mass. Left kidney: Normal echogenicity of renal parenchyma. Left kidney measures 12.1 cm. No hydronephrosis. 5 mm hyperechogenic focus at the upper pole and 4 mm hyperechogenic focus at the lower pole. These likely correlate with the known calculi in these locations best seen on CT from 09/03/2017. Bladder: Normal. Bilateral ureteral jets present. The previously seen distal right ureteral calculus is not visible on today's exam, possibly indicating passage. Other: Hyperechogenicity of hepatic parenchyma suggests hepatic steatosis. IMPRESSION: 1. Nonvisualization of the distal right ureteral calculus, possibly indicating passage. 2. No convincing evidence of residual right hydronephrosis. Mild right pelviectasis likely indicates a flaccid collecting system. 3. Left nephrolithiasis. 4. Suspected hepatic steatosis. Electronically signed by: Richard Hammond M.D. 10/07/2017 11:28 AM Dictated Date/Time: 10/07/2017 11:25 AM
== END | disposition home or self-care (01) ==
LOC: C.ULTR 09:58
PROVIDERS: ATTEND Urology
DX: N20.2 Calculus of kidney with calculus of ureter (principal)

== ENCOUNTER → 2017-10-07 | Outpatient (CLI) | payer OTHER | END | disposition home or self-care (01) | LOC: C.LABSPEC 17:41 | PROVIDERS: ATTEND Urology | DX: N20.2 Calculus of kidney with calculus of ureter (principal) ==

== ENCOUNTER 2021-10-09 14:20 | Inpatient (IN) ==
[2021-10-09] MEDS ORDERED: KETOROLAC TROMETHAMINE 15 MG/ML VIAL IV STA ×2 (14:32→16:11)
[2021-10-09] MEDS ORDERED: SODIUM CHLORIDE 0.9% 1000ML 1,000 ML IV ONE (14:32)
[2021-10-09] MEDS ORDERED: ONDANSETRON INJ 2 MG/ML 2 ML VIAL IV STA (14:32)
[2021-10-09 15:05] LABS: Basophils # (auto) 0.04 K/uL (0-0.2); Basophils % (auto) 0.4 %; Eosinophils # (auto) 0.08 K/uL (0-0.50); Eosinophils % (auto) 0.8 %; Hematocrit (blood only) 41.5 % (34.1-44.9); Hemoglobin 14.3 g/dl (12.0-16.0); Immature Granulocytes # (auto) 0.03 K/uL (0.00-0.02); Immature Granulocytes % (auto) 0.3 %; Mean Corpuscular Hgb Conc 34.5 g/dL (32.0-36.0); Mean Corpuscular Volume 84.2 fL (80.0-100.0); Mean Platelet Volume 10.1 fL (9.4-12.3); Monocytes # (auto) 0.58 K/uL (0.24-0.82); Monocytes % (auto) 5.6 %; Neutrophils # (auto) 7.08 K/uL (1.4-6.5); Neutrophils % (auto) 67.9 %; Platelet Count 284 K/uL (130-400); RDW Coefficient of Variation 12.7 % (11.5-14.5); RDW Standard Deviation 38.8 fL (36.4-46.3); Red Blood Count 4.93 M/uL (3.93-5.22); White Blood Count 10.41 K/ul (4.8-10.8)
--- NOTE | 2021-10-09 15:24 | CT Scan Report ---
CT SCAN OF THE ABDOMEN AND PELVIS WITHOUT IV CONTRAST CLINICAL HISTORY: Left flank pain. COMPARISON STUDY: Abdominal CT dated 09/03/2017. TECHNIQUE: CT scan of the abdomen and pelvis is performed from the lung bases to the proximal femora. Images are reviewed in the axial, sagittal, and coronal planes. IV contrast was not administered for this examination. A dose lowering technique was utilized adhering to the principles of ALARA. CT DOSE: 969.84 mGy.cm FINDINGS: Lung bases: The heart is normal in size and without pericardial effusion. The lung bases are clear. Liver: The unenhanced liver is normal in size, contour, and attenuation. There is no intrahepatic brandon iary ductal dilatation. Gallbladder: Contracted. Spleen: Normal in size and attenuation. Pancreas: Unremarkable. Adrenal glands: Unremarkable. Kidneys: The unenhanced kidneys are normal in size. There is a 4 mm obstructing calculus at the left vesicoureteral junction seen on image #409. This causes mild left hydroureteronephrosis. There is als o a 3 mm obstructing calculus in the right proximal ureter below the ureteropelvic junction at the le sabrina of L3 seen on image #216. There is only minimal right-sided hydronephrosis. An additional punctat e nonobstructing calculus is seen in each kidney. There is no evidence of contour deforming renal mas s lesion. Abdominal vasculature: The abdominal aorta is normal in course and caliber. Bowel: There is mild colonic fecal retention. No bowel obstruction is seen. The appendix is well-vis ualized and normal. Peritoneum: There is no intraperitoneal free air or abdominal ascites. There is a fat-containing umbi lical hernia. Lymphadenopathy: None. Pelvic viscera: The bladder is decompressed and grossly unremarkable. Uterus is normal as visualized noting an intrauterine device in place. No adnexal lesion is seen. Skeletal structures: A bone island is incidentally noted in the body of L1. No lytic or blastic lesio ns are seen. Sclerotic change is noted in the sacroiliac joints. IMPRESSION: 1. There is a 4 mm obstructing calculus at the left vesicoureteral junction. This causes mild left hy droureteronephrosis. 2. There is a 3 mm obstructing calculus in the right proximal ureter located just below the ureterope lvic junction. This causes minimal right-sided hydronephrosis. 3. An additional punctate nonobstructing calculus is seen in each kidney. 4. Additional findings as above. ACT 112: Negative or not required by law. Electronically signed by: Raleigh Hinkle M.D. 10/09/2021 3:22 PM
[2021-10-09 15:27] LABS: Albumin Level 4.3 gm/dl (3.4-5.0); BUN Creatinine Ratio 15.1 (10-20); Bilirubin,Total 0.5 mg/dl (0.2-1.0); Calcium 9.4 mg/dl (8.5-10.1); Est GFR (African American) 96.6 ml/min; Est GFR (Non-African American) 83.3 ml/min; Potassium 3.9 mmol/L (3.5-5.1); Total Protein 7.2 gm/dl (6.0-8.3)
--- NOTE | 2021-10-09 15:48 | Emergency Department Note ---
History of Present Illness General Chief Complaint: Kidney Stone Stated Complaint: KIDNEY STONE Time Seen by Provider: 10/09/21 14:30 History of Present Illness Provider Complaint: flank pain (L) Onset (ago): 2 day(s) Location: L flank Migration to: LLQ Severity: moderate Maximum Pain Intensity: 5 Current Pain Intensity: 5 Quality: + stabbing and + sharp Relieved By: + nothing Exacerbated By: + nothing Context: + history of similar episodes (Feels like previous kidney stones) Associated Symptoms: + nausea and + dysuria; no vomiting, no diarrhea, no fever, no chills, no constipation, no hematemesis, no hematochezia, no melena, no hematuria, no anorexia, no syncope, no headache, no neck pain, no chest pain and no breathing difficulty Polyuria Related Data Patient Confirmed : No Home Medications Medication Instructions Recorded Confirmed Type multivitamin 1 tab PO DAILY 01/19/18 10/09/21 History phentermine 15 mg capsule 15 mg PO QAM PRN appetite 03/04/21 10/09/21 Rx suppression #30 caps levonorgestrel 20 mcg/24 hours (7 1 device intrauterine DIRECTED 05/23/21 10/09/21 History yrs) 52 mg intrauterine device (Mirena) metformin 500 mg tablet 500 mg PO BID #60 tabs 08/07/21 10/09/21 Rx Allergies Allergy/AdvReac Type Severity Reaction Status Date / Time Penicillins Allergy Intermediate HIVES Verified 08/07/21 09:27 Past Med/Surg History Medical History (Updated 10/09/21 @ 16:54 by Segundo Bentley) Kidney stones Thrombosis SUPERFICIAL LEFT LEG 2007 Surgical History History of colonoscopy History of cystoscopy WITH STENT PLACED History of lithotripsy History of tooth extraction 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 Family History Father Diabetes Depression ROSY (obstructive sleep apnea) Mother Obesity Brother Depression Anxiety Social History Smoking Status: Never smoker Second Hand Exposure: No; Hx Alcohol Use: Yes Alcohol type: wine Hx Substance Use: No Preferred Language: Haitian Communication Ability: Effective Candy Spreader Required: No Beliefs That Will Affect Care: None Current Living Situation: Family Feels Safe at Home: Yes Assistive Devices: Contacts and Glasses Review of Systems A total of 10 systems reviewed and were otherwise negative Physical Exam Vital Signs: Vital Signs - 24 hr 10/09/21 14:25 10/09/21 14:54 10/09/21 16:00 Temperature 36.8 C Temperature Source Oral Pulse Rate 108 H 106 H Pulse Rate [Finger ] 85 Pulse Rhythm Regular Pulse Rhythm [Fing er] Regular Pulse Strength [Fi nger] Normal Respiratory Rate 20 17 20 Respiratory Effort / Characteristics Non-Labored Sponta neous Non-Labored Sponta neous Respiratory Depth Normal Normal Respiratory Patter n Regular Regular Blood Pressure 150/96 H Blood Pressure [Ri ght Arm] 156/103 H Blood Pressure Zoey n 114 Blood Pressure Zoey n [Right Arm] 120 Blood Pressure Pos ition [Right Arm] Lying Pulse Oximetry 100 97 97 Oxygen Delivery Me thod Room Air Room Air Room Air Sepsis Recent Feve r Within 48 Hours No Sepsis New/Unexpla ined Change in Men miguelina Status N/A Sepsis Action Take n by Nursing No Action Required Physical Exam: Physical Exam GENERAL: She is oriented to person, place, and time. She appears well-developed and well-nourished. She does not appear distressed. HENT: Exam performed. -Head: Normocephalic and atraumatic. -Right Ear: External ear normal. No mastoid tenderness. -Left Ear: External ear normal. No mastoid tenderness. -Mouth/Throat: The oropharynx is clear and moist. No trismus in the jaw. No dental abscesses or uvula swelling. No oropharyngeal exudate or tonsillar abscesses. EYES: Conjunctivae and EOM are normal. Pupils are equal, round, and reactive to light. Right eye exhibits no discharge. Left eye exhibits no discharge. No scleral icterus. NECK: Normal range of motion. Neck supple. No JVD present. No spinous process tenderness present. No carotid bruit present. No rigidity. No tracheal deviation and normal range of motion present. No Brudzinski's sign and no Kernig's sign noted. CV: Normal rate, regular rhythm, normal heart sounds and intact distal pulses. There is no peripheral edema. Palpable radial pulses bue. PULM/CHEST: Effort normal and breath sounds normal. No respiratory distress. No stridor. She has no wheezes. She has no rales. -Chest Wall: She exhibits no tenderness. ABD: The abdomen is soft. Bowel sounds are normal. She has no distension. No mass is present. There is tenderness to palpation of the left lower quadrant. There is no rebound, no guarding, no Galeana's sign and no tenderness at McBurney's point. Rovsig negative. Left-sided CVA tenderness. MUSC/SKEL: Normal range of motion. There is no peripheral edema, tenderness or deformity. LYMPH: No cervical adenopathy. NEURO: She is alert and oriented to person, place, and time. She has normal strength. No cranial nerve deficit or sensory deficit. Coordination and gait normal. GCS eye subscore is 4. GCS verbal subscore is 5. GCS motor subscore is 6. Cerebellar tests wnl. SKIN: Skin is warm and dry. She is not diaphoretic. PSYCH: She has a normal mood and affect. Behavior is normal. Judgment and thought content normal. Course Course 1430: The patient was evaluated in room A11. A complete history and physical exam was performed Cardiac monitoring: An order was placed for continuous cardiac monitoring. The monitor shows a rate of 100 with sinus rhythm 1651: Vital signs stable. Labs within normal limits. CT imaging shows 4 mm stone at the left UVJ with hydronephrosis and 3 mm stone at the proximal right ureter with some hydronephrosis. I discussed the imaging findings with the patient. Patient states she has difficult time passing kidney stones has never been able to pass a stone by herself. Patient is afraid that she will get home and happy will control her pain. Patient was given the option for inpatient observation versus outpatient follow-up with urology. After long discussion her and her living manager at bedside the patient elected to be admitted to the hospital for pain control and urology evaluation. Discussed case with Palma who stated to admit to Dr. Rodriges Administered Medications Discontinued Medications Sodium Chloride (Nss 1000ml) 1,000 mls @ 999 mls/hr IV .Q1H1M ONE Stop: 10/09/21 15:32 Last Infusion: 10/09/21 15:59 Dose: 0 mls/hr Documented By: Admin: 10/09/21 14:56 Dose: 999 mls/hr Documented By: KENNEDI Ketorolac Tromethamine (Ketorolac Tromethamine 15 Mg/Ml Vial) 15 mg IV NOW STA Stop: 10/09/21 14:33 Last Admin: 10/09/21 14:55 Dose: 15 mg Documented By: KENNEDI Ketorolac Tromethamine (Ketorolac Tromethamine 15 Mg/Ml Vial) 15 mg IV NOW STA Stop: 10/09/21 16:12 Last Admin: 10/09/21 16:15 Dose: 15 mg Documented By: KENNEDI Ondansetron HCl (Ondansetron Inj 2 Mg/Ml 2 Ml Vial) 4 mg IV NOW STA Stop: 10/09/21 14:33 Last Admin: 10/09/21 14:56 Dose: 4 mg Documented By: KENNEDI Medical Decision Making Laboratory Data Result diagrams: 10/09/21 14:50 10/09/21 14:50 Lab Results 10/09/21 10/09/21 10/09/21 Range/Units 14:50 14:50 15:29 WBC 10.41 (4.8-10.8) K/ul RBC 4.93 (3.93-5.22) M/uL Hgb 14.3 (12.0-16.0) g/dl Hct 41.5 (34.1-44.9) % MCV 84.2 (80.0-100.0) fL MCH 29.0 (25.0-34.0) pg MCHC 34.5 (32.0-36.0) g/dL RDW Std Deviation 38.8 (36.4-46.3) fL RDW Coeff of Shawn 12.7 (11.5-14.5) % Plt Count 284 (130-400) K/uL MPV 10.1 (9.4-12.3) fL Immature Gran % (Auto) 0.3 % Neut % (Auto) 67.9 % Lymph % (Auto) 25.0 % Brantley % (Auto) 5.6 % Eos % (Auto) 0.8 % Baso % (Auto) 0.4 % Neut # (Auto) 7.08 H (1.4-6.5) K/uL Lymph # (Auto) 2.60 (1.2-3.4) K/uL Brantley # (Auto) 0.58 (0.24-0.82) K/uL Eos # (Auto) 0.08 (0-0.50) K/uL Baso # (Auto) 0.04 (0-0.2) K/uL Immature Gran # (Auto) 0.03 H (0.00-0.02) K/uL Sodium 139 (136-145) mmol/L Potassium 3.9 (3.5-5.1) mmol/L Chloride 105 (98-107) mmol/L Carbon Dioxide 23 (21-32) mmol/L Anion Gap 11 (3-11) BUN 13 (6-23) mg/dl Creatinine 0.86 (0.6-1.2) mg/dl Est Cr Clr Drug Dosing 105.0 ml/min Est GFR ( Amer) 96.6 ml/min Est GFR (Non-Af Amer) 83.3 ml/min BUN/Creatinine Ratio 15.1 (10-20) Glucose 96 (70-99(Fasting)) mg/dl Calcium 9.4 (8.5-10.1) mg/dl Total Bilirubin 0.5 (0.2-1.0) mg/dl Direct Bilirubin 0.0 (0-0.2) mg/dl AST 12 L (13-39) U/L ALT 13 (7-52) U/L Alkaline Phosphatase 78 (34-104) U/L Total Protein 7.2 (6.0-8.3) gm/dl Albumin 4.3 (3.4-5.0) gm/dl Lipase 69 (11-82) U/L Urine Color Dark Yellow Urine Appearance Clear (Clear) Urine pH 7.5 (4.5-7.5) Ur Specific [place] 1.020 (1.000-1.030) Urine Protein Negative (Negative) Urine Glucose (UA) Negative (Negative) Urine Ketones Negative (Negative) Urine Blood 2+ H (Negative) Urine Nitrite Positive A (Negative) Urine Bilirubin Negative (Negative) Urine Urobilinogen Negative (Negative) Ur Leukocyte Esterase Negative (Negative) Urine WBC (Auto) 1-5 (0-5) /hpf Urine RBC (Auto) 10-30 H (0-4) /hpf U Hyaline Cast (Auto) 1-5 (0-5) /lpf U Epithel Cells (Auto) 5-10 H (0-5) /lpf Urine Bacteria (Auto) Negative (Negative) POC Ur Test (NEG) 10/09/21 Range/Units 15:29 WBC (4.8-10.8) K/ul RBC (3.93-5.22) M/uL Hgb (12.0-16.0) g/dl Hct (34.1-44.9) % MCV (80.0-100.0) fL MCH (25.0-34.0) pg MCHC (32.0-36.0) g/dL RDW Std Deviation (36.4-46.3) fL RDW Coeff of Shawn (11.5-14.5) % Plt Count (130-400) K/uL MPV (9.4-12.3) fL Immature Gran % (Auto) % Neut % (Auto) % Lymph % (Auto) % Brantley % (Auto) % Eos % (Auto) % Baso % (Auto) % Neut # (Auto) (1.4-6.5) K/uL Lymph # (Auto) (1.2-3.4) K/uL Brantley # (Auto) (0.24-0.82) K/uL Eos # (Auto) (0-0.50) K/uL Baso # (Auto) (0-0.2) K/uL Immature Gran # (Auto) (0.00-0.02) K/uL Sodium (136-145) mmol/L Potassium (3.5-5.1) mmol/L Chloride (98-107) mmol/L Carbon Dioxide (21-32) mmol/L Anion Gap (3-11) BUN (6-23) mg/dl Creatinine (0.6-1.2) mg/dl Est Cr Clr Drug Dosing ml/min Est GFR ( Amer) ml/min Est GFR (Non-Af Amer) ml/min BUN/Creatinine Ratio (10-20) Glucose (70-99(Fasting)) mg/dl Calcium (8.5-10.1) mg/dl Total Bilirubin (0.2-1.0) mg/dl Direct Bilirubin (0-0.2) mg/dl AST (13-39) U/L ALT (7-52) U/L Alkaline Phosphatase (34-104) U/L Total Protein (6.0-8.3) gm/dl Albumin (3.4-5.0) gm/dl Lipase (11-82) U/L Urine Color Urine Appearance (Clear) Urine pH (4.5-7.5) Ur Specific [place] (1.000-1.030) Urine Protein (Negative) Urine Glucose (UA) (Negative) Urine Ketones (Negative) Urine Blood (Negative) Urine Nitrite (Negative) Urine Bilirubin (Negative) Urine Urobilinogen (Negative) Ur Leukocyte Esterase (Negative) Urine WBC (Auto) (0-5) /hpf Urine RBC (Auto) (0-4) /hpf U Hyaline Cast (Auto) (0-5) /lpf U Epithel Cells (Auto) (0-5) /lpf Urine Bacteria (Auto) (Negative) POC Ur Test NEG (NEG) Imaging Data Radiologist's Impression: Abdomen/Pelvis CT 10/09/21 14:49 CT SCAN OF THE ABDOMEN AND PELVIS WITHOUT IV CONTRAST CLINICAL HISTORY: Left flank pain. COMPARISON STUDY: Abdominal CT dated 09/03/2017. TECHNIQUE: CT scan of the abdomen and pelvis is performed from the lung bases to the proximal femora. Images are reviewed in the axial, sagittal, and coronal planes. IV contrast was not administered for this examination. A dose lowering technique was utilized adhering to the principles of ALARA. CT DOSE: 969.84 mGy.cm FINDINGS: Lung bases: The heart is normal in size and without pericardial effusion. The lung bases are clear. Liver: The unenhanced liver is normal in size, contour, and attenuation. There is no intrahepatic biliary ductal dilatation. Gallbladder: Contracted. Spleen: Normal in size and attenuation. Pancreas: Unremarkable. Adrenal glands: Unremarkable. Kidneys: The unenhanced kidneys are normal in size. There is a 4 mm obstructing calculus at the left vesicoureteral junction seen on image #409. This causes mild left hydroureteronephrosis. There is also a 3 mm obstructing calculus in the right proximal ureter below the ureteropelvic junction at the level of L3 seen on image #216. There is only minimal right-sided hydronephrosis. An additional punctate nonobstructing calculus is seen in each kidney. There is no evidence of contour deforming renal mass lesion. Abdominal vasculature: The abdominal aorta is normal in course and caliber. Bowel: There is mild colonic fecal retention. No bowel obstruction is seen. The appendix is well-visualized and normal. Peritoneum: There is no intraperitoneal free air or abdominal ascites. There is a fat-containing umbilical hernia. Lymphadenopathy: None. Pelvic viscera: The bladder is decompressed and grossly unremarkable. Uterus is normal as visualized noting an intrauterine device in place. No adnexal lesion is seen. Skeletal structures: A bone island is incidentally noted in the body of L1. No lytic or blastic lesions are seen. Sclerotic change is noted in the sacroiliac joints. IMPRESSION: 1. There is a 4 mm obstructing calculus at the left vesicoureteral junction. This causes mild left hydroureteronephrosis. 2. There is a 3 mm obstructing calculus in the right proximal ureter located just below the ureteropelvic junction. This causes minimal right-sided hydronephrosis. 3. An additional punctate nonobstructing calculus is seen in each kidney. 4. Additional findings as above. ACT 112: Negative or not required by law. Electronically signed by: Raleigh Hinkle M.D. 10/09/2021 3:22 PM MDM Narrative Vital signs stable. Labs within normal limits. CT imaging shows 4 mm stone at the left UVJ with hydronephrosis and 3 mm stone at the proximal right ureter with some hydronephrosis. I discussed the imaging findings with the patient. Patient states she has difficult time passing kidney stones has never been able to pass a stone by herself. Patient is afraid that she will get home and happy will control her pain. Patient was given the option for inpatient observation versus outpatient follow-up with urology. After long discussion her and her living manager at bedside the patient elected to be admitted to the hospital for pain control and urology evaluation. Discussed case with Palma who stated to admit to Dr. Rodriges Impression & Plan Hydronephrosis with renal and ureteral calculous obstruction Discharge Plan Visit Data Chief Complaint: Kidney Stone Stated Complaint: KIDNEY STONE ED Provider: Segundo Bentley Discharge Problem: Hydronephrosis with renal and ureteral calculous obstruction Patient Disposition: Admitted As Inpatient Forms Stand Alone Forms: My [facility] [place] [employer] Prescriptions Prescriptions: No Action Mirena 20 mcg/24 hours (7 yrs) 52 mg intrauterine device 1 device intrauterine DIRECTED phentermine 15 mg capsule 15 mg PO QAM PRN (Reason: appetite suppression) Qty: 30 0RF metformin 500 mg tablet 500 mg PO BID Qty: 60 0RF multivitamin Tablet 1 tab PO DAILY Referrals Referrals: Jocelyn Nicole MD [Primary Care Provider] -
[2021-10-09 16:00] LABS: Appearance Urine Clear (Clear); Bacteria Urine Automated Negative (Negative); Bilirubin Urine Negative (Negative); Blood Urine 2+ (Negative); Color Urine Dark Yellow; Glucose Urine UA Negative (Negative); Ketones Urine Negative (Negative); Leukocyte Esterase Urine Negative (Negative); Nitrite Urine Positive (Negative); Protein Urine Negative (Negative); Urobilinogen Urine Negative (Negative); pH Urine 7.5 (4.5-7.5)
[2021-10-09] MEDS ORDERED: SODIUM CHLORIDE 0.9% 1000ML 1,000 ML IV SCH (17:00)
--- NOTE | 2021-10-09 17:34 | History & Physical Report ---
Date of Service October 09, 2021 Assessment & Plan (1) Hydronephrosis with renal and ureteral calculous obstruction: Plan: Patient is a 41-year-old female with PMH kidney stones requiring cystoscopy/stent in past presented to ER with complaint of left flank pain x2 da ys with associated nausea, urinary frequency. Denies fever, chills. In ER patient afebrile. No leukocytosis. Renal functions WNL. UA, 2+ blood, positive nitrite, negative bacteria, negative leuk esterase. Negative urine . CT abdomen and pelvis: 4 mm obstructing calculus at the left vesicoureteral junction. This causes mild left hydroureteronephrosis. There is a 3 mm obstructing calculus in the right proximal ureter located just below the ureteropelvic junction. This causes minimal right-sided hydronephrosis. An additional punctate nonobstructing calculus is seen in each kidney. In ER given Toradol, IVF Continue NSS Nausea and pain control Start Flomax, Pyridium Strain urine N.p.o. midnight Urology consult CBC, BMP (2) Elevated blood pressure reading: Plan: Initial BPs in ER elevated. Likely secondary to pain Repeat BP in ER WNL Pain control as above Monitor BP DVT Prophylaxis SCDs Follows with Dr Nicole for routine care Pt was seen and care coordinated with Dr Miller. See addendum History of Present Illness Chief Complaint: left flank pain Primary Care Provider: Jocelyn Nicole MD Patient is a 41-year-old female with PMH kidney stones requiring cystoscopy/stent in past presented to ER with complaint of left flank pain x2 days. Reports 2 days ago started with some mild aching to left back pain with radiation to left flank. Today severe pain to left flank with associated nausea. Denies vomiting. Reports urinary frequency. Tried Pyridium yesterday with minimal relief. Had leftover oral Toradol pills from kidney stone several years ago and took without much relief. Denies fever/chills, diaphoresis, vomiting, diarrhea, constipation, dysuria, hematuria, urinary retention, SMILEY, dizziness, syncope, vision changes, neck pain, CP, SOB, orthopnea, palpitations, cough, sore throat, choking, otalgia, rhinorrhea, paresthesias, weakness, extremity weakness, extremity edema, rashes. Allergies Allergy/AdvReac Type Severity Reaction Status Date / Time Penicillins Allergy Intermediate HIVES Verified 08/07/21 09:27 Home Medications Medication Instructions Recorded Confirmed Type multivitamin 1 tab PO DAILY 01/19/18 10/09/21 History levonorgestrel 20 mcg/24 hours (7 1 device intrauterine DIRECTED 05/23/21 10/09/21 History yrs) 52 mg intrauterine device (Mirena) Past Med/Surg History Medical History (Updated 10/09/21 @ 17:30 by Smitha Turner PA-C) Kidney stones Thrombosis SUPERFICIAL LEFT LEG 2008 Surgical History History of colonoscopy History of cystoscopy WITH STENT PLACED History of lithotripsy History of tooth extraction 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 Family History Father Diabetes Depression ROSY (obstructive sleep apnea) Mother Obesity Brother Depression Anxiety Social History (Updated 10/09/21 @ 17:28 by Smitha Turner PA-C) Smoking Status: Never smoker Second Hand Exposure: No; Hx Alcohol Use: No Hx Substance Use: No Preferred Language: Czech Communication Ability: Effective 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 Beliefs That Will Affect Care: None Current Living Situation: Family Feels Safe at Home: Yes Assistive Devices: Contacts and Glasses Review of Systems Review of Systems: All systems reviewed & are unremarkable except as noted in HPI & below Physical Exam Physical Exam: General: no distress, overweight Head: normocephalic, atraumatic Eyes: conjunctiva non-injected, anicteric ENT: normal inspection external ears, nose, mucous membranes moist Neck: supple, trachea midline Lungs: clear, no respiratory distress, no wheezing/rhonchi/rales CV: RRR, no murmur, no pretibial edema Abd: normal BS, soft, +tenderness to left flank, no CVA tenderness to percussion Ext: no cyanosis, no calf tenderness Neuro: A&O x 3, no focal deficits noted, normal affect Skin: warm, dry Results & Data Results & Data ([facility]) Vital Signs (Past 12 Hours) Vital Signs Temp Pulse Pulse Resp BP BP Pulse Ox 10/09/21 16:00 85 20 156/103 H 97 10/09/21 14:54 106 H 17 97 10/09/21 14:25 36.8 C 108 H 20 150/96 H 100 O2 Del Method 10/09/21 16:00 Room Air 10/09/21 14:54 Room Air 10/09/21 14:25 Room Air Laboratory Results Short CBC 10/09/21 Range/Units 14:50 WBC 10.41 (4.8-10.8) K/ul Hgb 14.3 (12.0-16.0) g/dl Hct 41.5 (34.1-44.9) % Plt Count 284 (130-400) K/uL BMP 10/09/21 14:50 Sodium 139 Potassium 3.9 Chloride 105 Carbon Dioxide 23 BUN 13 Creatinine 0.86 Glucose 96 Calcium 9.4 Liver Function 10/09/21 Range/Units 14:50 Total Bilirubin 0.5 (0.2-1.0) mg/dl Direct Bilirubin 0.0 (0-0.2) mg/dl AST 12 L (13-39) U/L ALT 13 (7-52) U/L Alkaline Phosphatase 78 (34-104) U/L Albumin 4.3 (3.4-5.0) gm/dl Urine 10/09/21 Range/Units 15:29 Urine Color Dark Yellow Urine Appearance Clear (Clear) Urine pH 7.5 (4.5-7.5) Ur Specific Temple 1.020 (1.000-1.030) Urine Protein Negative (Negative) Urine Glucose (UA) Negative (Negative) Diagnostic Findings Abdomen/Pelvis CT 10/09/21 14:49 CT SCAN OF THE ABDOMEN AND PELVIS WITHOUT IV CONTRAST CLINICAL HISTORY: Left flank pain. COMPARISON STUDY: Abdominal CT dated 09/03/2017. TECHNIQUE: CT scan of the abdomen and pelvis is performed from the lung bases to the proximal femora. Images are reviewed in the axial, sagittal, and coronal planes. IV contrast was not administered for this examination. A dose lowering technique was utilized adhering to the principles of ALARA. CT DOSE: 969.84 mGy.cm FINDINGS: Lung bases: The heart is normal in size and without pericardial effusion. The lung bases are clear. Liver: The unenhanced liver is normal in size, contour, and attenuation. There is no intrahepatic biliary ductal dilatation. Gallbladder: Contracted. Spleen: Normal in size and attenuation. Pancreas: Unremarkable. Adrenal glands: Unremarkable. Kidneys: The unenhanced kidneys are normal in size. There is a 4 mm obstructing calculus at the left vesicoureteral junction seen on image #409. This causes mild left hydroureteronephrosis. There is also a 3 mm obstructing calculus in t he right proximal ureter below the ureteropelvic junction at the level of L3 seen on image #216. There is only minimal right-sided hydronephrosis. An additional punctate nonobstructing calculus is seen in each kidney. There is no evidence of contour deforming renal mass lesion. Abdominal vasculature: The abdominal aorta is normal in course and caliber. Bowel: There is mild colonic fecal retention. No bowel obstruction is seen. The appendix is well-visualized and normal. Peritoneum: There is no intraperitoneal free air or abdominal ascites. There is a fat-containing umbilical hernia. Lymphadenopathy: None. Pelvic viscera: The bladder is decompressed and grossly unremarkable. Uterus is normal as visualized noting an intrauterine device in place. No adnexal lesion is seen. Skeletal structures: A bone island is incidentally noted in the body of L1. No lytic or blastic lesions are seen. Sclerotic change is noted in the sacroiliac joints. IMPRESSION: 1. There is a 4 mm obstructing calculus at the left vesicoureteral junction. This causes mild left hydroureteronephrosis. 2. There is a 3 mm obstructing calculus in the right proximal ureter located just below the ureteropelvic junction. This causes minimal right-sided hydronephrosis. 3. An additional punctate nonobstructing calculus is seen in each kidney. 4. Additional findings as above. ACT 112: Negative or not required by law. Electronically signed by: Raleigh Hinkle M.D. 10/09/2021 3:22 PM Supervising Physician Co-Signing Physician Notes Patient is a 41-year-old female with history of nephrolithiasis, obesity, metabolic syndrome and no other significant medical problems presents with history of left flank pain since 2 days duration. Patient states having associated nausea, urinary urgency/frequency but denies any fever, hematuria. Please review HPI for complete details of presentation. Blood work reviewed and is within normal limits. Urinalysis showed 2+ blood, positive nitrate, negative leukocyte esterase, normal WBC, negative for bacteria. CT abdomen showed 4 mm obstructing calculus at the left vesicoureteral junction causing mild left hydroureteronephrosis. Also noted 3 mm obstructing calculus in the right proximal ureter located just below the ureteropelvic junction causing minimal right-sided hydronephrosis. Additional punctate nonobstructing calculus is seen in each kidney. On exam patient is obese, no apparent distress, normocephalic/atraumatic, normal breath sounds, clear to auscultation, S1-S2, no murmur, no pedal edema, abdomen soft, bilateral flank, left groin tender, normal bowel sounds, no guarding or rigidity, alert, awake, oriented, grossly no focal deficits. Patient is admitted for management of bilateral ureteral calculus, obstructive uropathy. Agree with IV fluids, Flomax, Pyridium. Consulted urology. Strain urine. Pain control. Blood pressure elevation likely situational secondary to pain. Monitor blood pressure and consider medications if needed. I personally reviewed the record. Patient is interviewed and examined at bedside. Patient's care is coordinated with Smitha Turner PA-C. Please refer to the documentation above for details of patient's presentation and for discussion of other issues.
--- NOTE | 2021-10-09 19:42 | Urology Consultation ---
Date of Consultation October 09, 2021 Assessment & Plan (1) Hydronephrosis with renal and ureteral calculous obstruction: The patient has been admitted on the hospitalist service. Recommend proceeding as follows: Provide analgesics Provide antiemetics Recommend initiating Flomax for expulsive therapy Hydration with IV fluids As the patient has normal white blood cell count, is afebrile, and UA is not indicative of infection antibiotics do not need to be given at this time At the present time the patient did not require an emergent urologic procedure as she is hemodynamically stable, afebrile, has normal renal function, and has no leukocytosis Recommend making the patient n.p.o. after midnight., In the event she does not clinically improve and require cystoscopic intervention in the morning. Supervising Physician Co-Signing Physician Notes Discussed patient with CHILO. Agree with plan. Patient with bilateral obstructing stones. We will likely add on for bilateral ureteral stent placement later today. Patient is currently stable. History of Present Illness Reason for Consultation: Nephrolithiasis History of Present Illness This is a 41-year-old female who presented to the emergency department secondary to left flank pain for approximately 2 days. Patient notes that she does have a history of kidney stones in the past requiring cystoscopy and stent placement. She notes that her pain was initially in the left flank but has since radiated to the left lower quadrant of her abdomen. She has had nausea without vomiting. She denies any fevers, shakes, or chills. She does report urinary frequency but denies any dysuria or hematuria. Because of her symptomatology and history of kidney stone she did present to the emergency department. In the emergency department patient had labs and imaging which I independent reviewed. CBC revealed white blood cell count, hemoglobin, hematocrit, and platelet count were all within normal range. Chemistry profile showed sodium, potassium, BUN, and creatinine were all within normal range. There were no elevation of patient's LFTs or lipase. Urinalysis was positive for nitrites but was otherwise not indicative of infection as there was no leukocyte esterase, only 1-5 white blood cells per high-power field, and no bacteria. A test was noted be negative. A COVID test was noted be negative. A CT scan of the abdomen pelvis did show the patient had a 4 mm obstructing stone at the left ureterovesical junction causing left hydronephrosis. She also and was noted to have a 3 mm obstructing stone in the right proximal ureter just below the ureteropelvic junction causing minimal right-sided hydronephrosis. At the time of my exam the patient was noted to be uncomfortable but she was in no distress. Allergies Allergy/AdvReac Type Severity Reaction Status Date / Time Penicillins Allergy Intermediate HIVES Verified 08/07/21 09:27 Home Medications Medication Instructions Recorded Confirmed Type multivitamin 1 tab PO DAILY 01/19/18 10/09/21 History levonorgestrel 20 mcg/24 hours (7 1 device intrauterine DIRECTED 05/23/21 10/09/21 History yrs) 52 mg intrauterine device (Mirena) Patient History Medical History Kidney stones Thrombosis SUPERFICIAL LEFT LEG 2008 Surgical History History of colonoscopy History of cystoscopy WITH STENT PLACED History of lithotripsy History of tooth extraction 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 Family History Father Diabetes Depression ROSY (obstructive sleep apnea) Mother Obesity Brother Depression Anxiety Social History Smoking Status: Never smoker Second Hand Exposure: No; Hx Alcohol Use: Yes Alcohol type: wine Hx Substance Use: No Preferred Language: Telugu Communication Ability: Effective Profiler Hand Required: No Beliefs That Will Affect Care: None Current Living Situation: Spouse Other Information That Helps Us Care for You: No Feels Safe at Home: Yes Safety Concerns: Feels Safe At This Time Assistive Devices: None Review of Systems Constitutional: no fever and no chills Eyes: no diplopia Ear, Nose, Mouth, Throat: no ear pain Respiratory: no cough Cardiovascular: no chest pain Gastrointestinal: + abdominal pain (Radiating from left flank) and + nausea; no vomiting Genitourinary: as per Subjective / HPI Musculoskeletal: + back pain (Left flank) Integumentary: no rash Neurologic: no localized weakness Physical Exam Constitutional: WD/WN, vitals as above Eyes: no conjunctival abnormality ENMT: Ears: no hearing impairment Mouth: no oropharynx abnormality Neck: trachea midline Respiratory: normal respiratory effort, lungs clear to auscultation Cardiovascular: Rate/Rhythm: regular rate and regular rhythm Gastrointestinal (Abdomen): Abdomen is soft, nondistended, nonrigid. Bowel sounds are present. There is no rebound tenderness or guarding. The patient did have pain with palpation in the left lower quadrant Musculoskeletal: No calf tenderness. No mottling of the extremities Skin: no rashes Neurologic: moves all extremities Psychiatric: A+Ox3, euthymic affect Genitourinary: + CVA tenderness (Left-sided, noted with percussion) Results & Data ([facility]) Vital Signs (Past 12 Hours) Vital Signs Temp Pulse Pulse Resp BP BP Pulse Ox 10/09/21 18:00 84 18 150/94 H 98 10/09/21 16:00 85 20 156/103 H 97 10/09/21 14:54 106 H 17 97 10/09/21 14:25 36.8 C 108 H 20 150/96 H 100 O2 Del Method 10/09/21 18:00 Room Air 10/09/21 16:00 Room Air 10/09/21 14:54 Room Air 10/09/21 14:25 Room Air PG Care Time/CCT Total # of Minutes Spent Total Time Spent with Patient: Total time spent is greater than 50% in coordination of care (as documented) at patient's floor/unit and/or counseling patient: Coding Level of Care Code 14213 Inpt Consult Level 5 Diagnoses Hydronephrosis with renal and ureteral calculous obstruction N13.2
[2021-10-09] MEDS ORDERED: MoRPHine SULFATE 4 MG/ML 1 ML CARP\\VIAL IV PRN (19:46)
[2021-10-09] MEDS ORDERED: POLYETHYLENE (MIRALAX) 17 GM PACK PO PRN (19:46)
[2021-10-09] MEDS ORDERED: ONDANSETRON INJ 2 MG/ML 2 ML VIAL IV PRN (19:46)
[2021-10-09] MEDS: PHENAZOPYRIDINE HCL 200 MG TAB PO PRN (21:22)
[2021-10-09] MEDS: SODIUM CHLORIDE 0.9% 1000ML 1,000 ML IV SCH (21:22)
[2021-10-09] MEDS: TAMSULOSIN HCL 0.4 MG CAP PO SCH (21:33)
[2021-10-10] MEDS: ACETAMINOPHEN 325 MG TAB PO PRN (05:19)
[2021-10-10] MEDS: SODIUM CHLORIDE 0.9% 1000ML 1,000 ML IV SCH ×2 (05:19→11:38)
[2021-10-10] MEDS ORDERED: CIPROFLOXACIN / D5W 400 MG/200 ML BAG IV SCH (06:00)
[2021-10-10 08:18] LABS: Hematocrit (blood only) 36.9 % (34.1-44.9); Hemoglobin 12.1 g/dl (12.0-16.0); Mean Corpuscular Hemoglobin 28.7 pg (25.0-34.0); Mean Corpuscular Hgb Conc 32.8 g/dL (32.0-36.0); Mean Corpuscular Volume 87.4 fL (80.0-100.0); Mean Platelet Volume 10.1 fL (9.4-12.3); Platelet Count 219 K/uL (130-400); RDW Coefficient of Variation 12.7 % (11.5-14.5); RDW Standard Deviation 40.7 fL (36.4-46.3); Red Blood Count 4.22 M/uL (3.93-5.22); White Blood Count 10.36 K/ul (4.8-10.8)
[2021-10-10] MEDS: PHENAZOPYRIDINE HCL 200 MG TAB PO PRN ×2 (08:18→20:43)
--- NOTE | 2021-10-10 08:21 | Urology Progress Note ---
Date of Service October 10, 2021 Assessment & Plan (1) Hydronephrosis with renal and ureteral calculous obstruction: Plan: 41 yo F admitted for left flank pain secondary to 4 mm left UVJ stone and hydronephrosis; also found to have a 3 mm right proximal ureteral stone with mild hydronephrosis. - Pt afebrile, creatinine and WBC within normal limits, hemodynamically stable. - UA on admission with positive nitrates, no urine culture pending. - Continues to have intermittent left sided discomfort, no pain on right side. - Voiding spontaneously - continue to monitor. - Discussed options for stone management including ureteroscopy and stent placement, possible stone treatment while inpatient. - Findings reviewed with Dr. Wilson. Given presence of bilateral obstructing ureteral stones, there is a low threshold for intervention due to concern for clinical decompensation. - Proceed with OR for cystoscopy, bilateral ureteroscopy, possible bilateral stone treatment, and bilateral stent placement. - She is agreeable with the plan. - Risks and benefits to be reviewed with patient by Dr. Wilson. OR notified. - Will cover with IV Ciprofloxacin preoperatively. - Keep NPO for procedure. - Strain all urine, notify urology if she passes stone. - If her left UVJ stone passes spontaneously in the interim and she remains asymptomatic on the right, then it would be reasonable to follow-up outpatient regarding her right proximal stone. - Will continue to follow. Attending note: Independently evaluated, assessed, interviewed, and examined. Agree with above. Patient has bilateral stones. Concern for developing bilateral hydronephrosis with possible obstruction. Discussed possible options and concerns. Discussed concerns about possible obstruction especially with bilateral stone disease and development of significant kidney injury and possible anuria. Discussed possibility of stone passage. Discussed different options including hydration and spontaneous passage. Discussed different options for intervention. Discussed possible surgical inte rvention with possible stone treatment. Discussed possible ureteroscopy and treatment. Discussed lithotripsy as option. Discussed stent placement. We will plan to set patient up for procedure. Risks and benefits discussed at length for procedure. These include bleeding, infection, injury to surrounding tissues or organs, and risks associated with anesthesia. Patient states understanding and agrees to proceed. Will sign consent and proceed with cystoscopy and possible bilateral ureteroscopy and stone treatment Admission and Anticipated Discharge Date Admission Date: October 09, 2021 Subjective Patient seen and examined this AM. She is awake, alert and resting in bed. Subjectively feeling better since arrival. Reports left lower abdominal discomfort, rated 4/10 at present. No flank pain. Voiding spontaneously. Notes urinary urgency. No dysuria or hematuria. No nausea or vomiting. No fever or chills. She is NPO. Review of Systems Constitutional: as per Subjective / HPI Respiratory: no dyspnea Cardiovascular: no chest pain Gastrointestinal: as per Subjective / HPI Genitourinary: as per Subjective / HPI Physical Exam Constitutional: well developed and well nourished; no acute distress and not ill appearing Respiratory: normal respiratory effort and able to speak in complete sentences; no respiratory distress and no labored breathing Cardiovascular: Extremities: no pedal edema Gastrointestinal (Abdomen): Inspection/Auscultation: abdomen normal to inspection; abdomen not distended Percussion/Palpation: abdomen soft; abdomen nontender and no guarding Neurologic: moves all extremities and awake Psychiatric: Orientation: alert and oriented x 3 Genitourinary: no CVA tenderness Results & Data ([facility]) Vital Signs (Past 12 Hours) Vital Signs Temp Pulse Resp BP Pulse Ox O2 Del Method 10/10/21 07:12 36.5 C 78 16 115/72 98 Room Air PG Care Time/CCT Total # of Minutes Spent Total Time Spent with Patient: Total time spent is greater than 50% in coordination of care (as documented) at patient's floor/unit and/or counseling patient: Coding Level of Care Code 22401 Subseq Hosp Care Lvl 2 Diagnoses Hydronephrosis with renal and ureteral calculous obstruction N13.2
[2021-10-10 08:47] LABS: BUN Creatinine Ratio 14.1 (10-20); Calcium 8.3 mg/dl (8.5-10.1); Creatinine Clr Calc Pharmacy 117.5 ml/min; Est GFR (African American) 108.7 ml/min; Est GFR (Non-African American) 93.8 ml/min; Potassium 4.2 mmol/L (3.5-5.1)
--- NOTE | 2021-10-10 10:29 | Hospitalist Progress Note ---
Date of Service October 10, 2021 Assessment & Plan (1) Hydronephrosis with renal and ureteral calculous obstruction: Plan: Patient is a 41-year-old female with PMH kidney stones requiring cystoscopy/stent in past presented to ER with complaint of left flank pain x2 da ys with associated nausea, urinary frequency found to have hydronephrosis with renal and ureteral calculus obstruction. Afebrile, creatinine and WBC within normal limits, hemodynamically stable. UA, 2+ blood, positive nitrite, negative bacteria, negative leuk esterase. Negative urine . CT abdomen and pelvis: 4 mm obstructing calculus at the left vesicoureteral junction. This causes mild left hydroureteronephrosis. There is a 3 mm obstructing calculus in the right proximal ureter located just below the ureteropelvic junction. This causes minimal right-sided hydronephrosis. An addit ional punctate nonobstructing calculus is seen in each kidney. Seen by urology. Plan for OR today around noon for cystoscopy, bilateral ureteroscopy, possible bilateral stone treatment, and bilateral stent placement by Dr. Wilson Continue PRN analgesics, antiemetics (2) Elevated blood pressure reading: Plan: Initial BPs in ER elevated. Likely secondary to pain --> resolved DVT Prophylaxis: SCDs Code status: FULL PCP: Corey Dispo: Admitted to med/surg Patient seen in collaboration with Dr. Conway. Please see addendum. Admission and Anticipated Discharge Date Admission Date: October 09, 2021 Supervising Physician Co-Signing Physician Notes Patient was seen and examined independently at bedside. Chart reviewed. Case discussed with Wilma Chaparro PA-C and agree with the documentation above with regards to HPI, physical exam, assessment and plan. 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 If not expels spontaneously, plan for OR today per uro. Pain is controlled. No N/V. Rest as per the note above. Subjective Patient seen and examined this AM. Still experiencing 5/10 pain described as pressure in left lower abdomen/bladder region. Worsens with urinary urgency and improved after urinating. Voiding spontaneously. No hematuria or dysuria. Denies any nausea or vomiting. No fever, chills, chest pain, shortness of breath, diarrhea or constipation. Remains NPO; due for OR today around noon. Review of Systems Review of Systems: At least ten systems reviewed and negative except as noted in the HPI. Physical Exam Physical Exam: Gen: WD/WN, NAD, sitting in bed, A&Ox3 HEENT: Normocephalic, atraumatic, conjunctivae moist, sclerae anicteric, mucous membranes moist Lung: Clear to Auscultation bilaterally, no wheezes/rales/rhonchi Heart: Regular rate, regular rhythm, no murmurs, rubs, or gallops Abdomen: Soft, TTP LLQ into L suprapubic region, ND +BS x 4 Extremities: no edema Skin: Warm, no rash Results & Data Results & Data ([facility]) Vital Signs (Past 12 Hours) Vital Signs Temp Pulse Resp BP Pulse Ox O2 Del Method 10/10/21 07:12 36.5 C 78 16 115/72 98 Room Air Laboratory Results Short CBC 10/09/21 10/10/21 Range/Units 14:50 07:53 WBC 10.41 10.36 (4.8-10.8) K/ul Hgb 14.3 12.1 (12.0-16.0) g/dl Hct 41.5 36.9 (34.1-44.9) % Plt Count 284 219 (130-400) K/uL BMP 10/09/21 10/10/21 14:50 07:53 Sodium 139 137 Potassium 3.9 4.2 Chloride 105 106 Carbon Dioxide 23 27 BUN 13 11 Creatinine 0.86 0.78 Glucose 96 98 Calcium 9.4 8.3 L Liver Function 10/09/21 Range/Units 14:50 Total Bilirubin 0.5 (0.2-1.0) mg/dl Direct Bilirubin 0.0 (0-0.2) mg/dl AST 12 L (13-39) U/L ALT 13 (7-52) U/L Alkaline Phosphatase 78 (34-104) U/L Albumin 4.3 (3.4-5.0) gm/dl Urine 10/09/21 Range/Units 15:29 Urine Color Dark Yellow Urine Appearance Clear (Clear) Urine pH 7.5 (4.5-7.5) Ur Specific Patterson 1.020 (1.000-1.030) Urine Protein Negative (Negative) Urine Glucose (UA) Negative (Negative) Diagnostic Findings Abdomen/Pelvis CT 10/09/21 14:49 CT SCAN OF THE ABDOMEN AND PELVIS WITHOUT IV CONTRAST CLINICAL HISTORY: Left flank pain. COMPARISON STUDY: Abdominal CT dated 09/03/2017. TECHNIQUE: CT scan of the abdomen and pelvis is performed from the lung bases to the proximal femora. Images are reviewed in the axial, sagittal, and coronal planes. IV contrast was not administered for this examination. A dose lowering technique was utilized adhering to the principles of ALARA. CT DOSE: 969.84 mGy.cm FINDINGS: Lung bases: The heart is normal in size and without pericardial effusion. The pranay ng bases are clear. Liver: The unenhanced liver is normal in size, contour, and attenuation. There is no intrahepatic biliary ductal dilatation. Gallbladder: Contracted. Spleen: Normal in size and attenuation. Pancreas: Unremarkable. Adrenal glands: Unremarkable. Kidneys: The unenhanced kidneys are normal in size. There is a 4 mm obstructing calculus at the left vesicoureteral junction seen on image #409. This causes mild left hydroureteronephrosis. There is also a 3 mm obstructing calculus in the right proximal ureter below the ureteropelvic junction at the level of L3 seen on image #216. There is only minimal right-sided hydronephrosis. An additional punctate nonobstructing calculus is seen in each kidney. There is no evidence of contour deforming renal mass lesion. Abdominal vasculature: The abdominal aorta is normal in course and caliber. Bowel: There is mild colonic fecal retention. No bowel obstruction is seen. The appendix is well-visualized and normal. Peritoneum: There is no intraperitoneal free air or abdominal ascites. There is a fat-containing umbilical hernia. Lymphadenopathy: None. Pelvic viscera: The bladder is decompressed and grossly unremarkable. Uterus is normal as visualized noting an intrauterine device in place. No adnexal lesion is seen. Skeletal structures: A bone island is incidentally noted in the body of L1. No lytic or blastic lesions are seen. Sclerotic change is noted in the sacroiliac joints. IMPRESSION: 1. There is a 4 mm obstructing calculus at the left vesicoureteral junction. This causes mild left hydroureteronephrosis. 2. There is a 3 mm obstructing calculus in the right proximal ureter located just below the ureteropelvic junction. This causes minimal right-sided hydronephrosis. 3. An additional punctate nonobstructing calculus is seen in each kidney. 4. Additional findings as above. ACT 112: Negative or not required by law. Electronically signed by: Raleigh Hinkle M.D. 10/09/2021 3:22 PM
[2021-10-10] MEDS: KETOROLAC TROMETHAMINE 15 MG/ML VIAL IV PRN ×2 (14:30→20:43)
--- NOTE | 2021-10-10 15:40 | Anesthesiology Consultation ---
Date of Service October 10, 2021 Assessment & Plan (1) Encounter for pre-operative examination: Chart Review Chart Review: Acceptable Risk for Surgery History Surgery Operation Date: 10/10/21 11:55 Proposed Procedures p Cystoscopy, Bilateral Ureteroscopy, Possible Stone Treatment, Bilateral Stent Placement - Jayden Wilson DO Height/Weight Height: 5 ft 7 in Weight: 105.6 kg Allergies Allergy/AdvReac Type Severity Reaction Status Date / Time Penicillins Allergy Intermediate HIVES Verified 08/07/21 09:27 Medications Home Medications Medication Instructions Recorded Confirmed Last Taken multivitamin 1 tab PO DAILY 01/19/18 10/09/21 01/28/18 levonorgestrel 20 mcg/24 hours (7 1 device intrauterine DIRECTED 05/23/21 10/09/21 Unknown yrs) 52 mg intrauterine device (Mirena) Active Medications Generic Name Dose Route Start Last Admin Trade Name Freq PRN Reason Stop Dose Admin Acetaminophen 650 mg 10/09/21 19:46 10/10/21 05:19 Acetaminophen 325 Mg Tab PO 11/08/21 19:45 650 mg Q4H PRN Administration pain/fever Sodium Chloride 1,000 mls @ 125 mls/hr 10/09/21 19:46 10/10/21 11:38 Nss 1000ml IV 10/10/21 19:45 125 mls/hr .Q8H CAMILO Administration Ketorolac Tromethamine 15 mg 10/09/21 19:46 10/10/21 14:30 Ketorolac Tromethamine 15 Mg/Ml Vial IV 10/14/21 19:45 15 mg Q6H PRN Administration Moderate Pain Morphine Sulfate 3 mg 10/09/21 19:46 10/09/21 20:03 Morphine Sulfate 4 Mg/Ml 1 Ml Carp\Vial IV 10/23/21 19:45 3 mg Q4H PRN Administration Severe Pain Ondansetron HCl 4 mg 10/09/21 19:46 10/09/21 21:21 Ondansetron Inj 2 Mg/Ml 2 Ml Vial IV 11/08/21 19:45 4 mg Q6H PRN Administration Nausea Phenazopyridine HCl 200 mg 10/09/21 19:46 10/10/21 08:18 Phenazopyridine Hcl 200 Mg Tab PO 10/11/21 19:45 200 mg TID PRN Administration urinary frequency, dysuria Tamsulosin HCl 0.4 mg 10/09/21 21:00 10/09/21 21:33 Tamsulosin Hcl 0.4 Mg Cap PO 11/08/21 20:59 0.4 mg HS CAMILO Administration Past Medical History Medical History Kidney stones Thrombosis SUPERFICIAL LEFT LEG 2008 Past Family History Family History Father Diabetes Depression ROSY (obstructive sleep apnea) Mother Obesity Brother Depression Anxiety Past Surgical History Surgical History History of colonoscopy History of cystoscopy WITH STENT PLACED History of lithotripsy History of tooth extraction 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 Social History Smoking Status: Never smoker Hx Alcohol Use: Yes Alcohol type: wine alcohol intake frequency: holidays/special occasions only Hx Substance Use: No substance use type: does not use Physical Exam Vital Signs Last Vital Signs Temp 36.8 C 10/10/21 14:34 Pulse 75 10/10/21 14:34 Resp 16 10/10/21 14:34 BP 142/82 H 10/10/21 14:34 Pulse Ox 95 10/10/21 14:34 O2 Del Method 10/10/21 14:34 Testing Laboratory Results 10/10/21 07:53 10/10/21 07:53 Urine Color Dark Yellow 10/09/21 15:29 Urine Appearance Clear (Clear) 10/09/21 15:29 Urine pH 7.5 (4.5-7.5) 10/09/21 15:29 Ur Specific Seanor 1.020 (1.000-1.030) 10/09/21 15:29 Urine Protein Negative (Negative) 10/09/21 15:29 Urine Glucose (UA) Negative (Negative) 10/09/21 15:29 Urine Ketones Negative (Negative) 10/09/21 15:29 Urine Nitrite Positive (Negative) A 10/09/21 15:29 Ur Leukocyte Esterase Negative (Negative) 10/09/21 15:29 Urine WBC (Auto) 1-5 /hpf (0-5) 10/09/21 15:29 Urine RBC (Auto) 10-30 /hpf (0-4) H 10/09/21 15:29 U Hyaline Cast (Auto) 1-5 /lpf (0-5) 10/09/21 15:29 U Epithel Cells (Auto) 5-10 /lpf (0-5) H 10/09/21 15:29 Urine Bacteria (Auto) Negative (Negative) 10/09/21 15:29 10/09/21 15:29 POC Ur Test NEG
[2021-10-10] MEDS ORDERED: PROPOFOL IV EMULSION 10 MG/ML 20 ML VIAL IV ONE (16:08)
[2021-10-10] MEDS ORDERED: LIDOCAINE 2% MPF LOCAL 5 ML VIAL INFIL ONE (16:08)
[2021-10-10] MEDS ORDERED: MIDAZOLAM HCL 1 MG/ML 2ML VIAL ONE (16:58)
[2021-10-10] MEDS ORDERED: fentaNYL citrate 100 MCG/2 ML VIAL ONE (16:58)
[2021-10-10] MEDS ORDERED: HYDROmorphone INJ 2 MG/ML SYR/VIAL IV PRN (17:06)
[2021-10-10] MEDS ORDERED: PROMETHAZINE HCL 12.5 MG in SODIUM CHLORIDE 0.9% 50 ML IV PRN (17:06)
[2021-10-10] MEDS ORDERED: OPTIRAY 300 IV PRN (17:06)
[2021-10-10] MEDS ORDERED: fentaNYL citrate 100 MCG/2 ML VIAL IV PRN (17:06)
[2021-10-10] MEDS ORDERED: ONDANSETRON INJ 2 MG/ML 2 ML VIAL IV PRN (17:06)
[2021-10-10] MEDS ORDERED: ePHEDrine sulfate 50 MG/ML AMP IV PRN (17:06)
[2021-10-10] MEDS ORDERED: ATROPINE SULFATE 0.1 MG/ML 10ML SYR IV PRN (17:06)
[2021-10-10] MEDS ORDERED: ONDANSETRON INJ 2 MG/ML 2 ML VIAL ONE (17:21)
[2021-10-10] MEDS ORDERED: DEXAMETHASONE SOD INJ 4 MG/ML VIAL ONE (17:21)
[2021-10-10] MEDS ORDERED: DIATRIZOATE MEGLUMINE 30% 100ML VIAL INSTIL PRN (17:50)
--- NOTE | 2021-10-10 17:57 | Operative Report ---
PG Post Operative Report Pre & Post Diagnosis Operation Date: 10/10/21 11:55 Pre-Op Diagnosis: Bilateral ureteral calculous obstruction Post-Op Diagnosis: Bilateral ureteral calculous obstruction I identified the patient and participated in the time-out.: Yes Procedure Operation Date: 10/10/21 11:55 Actual Procedures p Cystoscopy with Bilateral Retrograde Pyelogram, and Bilateral Ureteroscopy Right Stent Placement Left Ureteral Stone Basket Extraction - Jayden Wilson DO Surgeon Jayden Wilson, II, DO [employer] Professor None Estimated Blood Loss 1 Findings Consistent with Post-Op Diagnosis Left Distal ureteral stone grasped and removed. Right Ureter with distal ureter narrowing. Elected to place stent and treat stone on right at later time. Specimens Stone Left Ureter Drains 4.8 Fr x 24 Right Stent. Anesthesia Type General Complications none Disposition Disposition: Recovery Room Indications Patient with bothersome stones. Risks and benefits discussed at length. Description of Procedure Patient was consented and brought back to the operating room. Patient was placed under anesthesia in the supine position and moved to the dorsal lithotomy position. Patient was prepped and draped in the regular sterile fashion. A time out was completed. A 30degree Cystoscope was placed into the bladder and the entire bladder was examined. The UO's were identified. The left followed by the right UO was cannulized with a catheter and a retrograde pyelogram was completed. A wire was then placed bilaterally. The Rigid ureteroscope was taken into the ureter First on the left. The stone was identified. The stone was grasped and removed and sent for analysis. The ureter was examined to the proximal ureter and no further issues were discovered. Due to minimal issues at distal ureter and UO, elected to hold on stent placement on left. The left wire was removed with the right remaining in place. The right ureter was then entered and the ureter examined. In the distal ureter a narrowed area was discovered. It was determined that dilation will be necessary in order to bypass the area and due to the patient's bilateral stone presentation at this point it was elected to only place the stent without further manipulation of the ureter. The stone on the right had been previously seen at the UPJ just below the renal pelvis/collecting system. At this point the narrowed area was not further manipulated and the scope was slowly removed and the entire area was once again examined. Contrast was placed through the scope for a pyelogram to assist in stent placement. The entire distal ureter was examined as the scope was slowly removed. No obstructions or other areas of concern were noted. With the wire in place, a 4.8 Fr Double J stent was placed. It was confirmed with fluoroscopy. With the stent in place, the bladder was emptied. The scope was removed. The patient was cleaned, aroused from anesthesia, and transferred to the pacu in stable condition having tolerated the procedure well with no complications. I was present and participated in all aspects of the procedure. The patient will be monitored in the PACU until transferred. The stone on the left side was treated and due to minimal irritation or signs of obstruction a stent was not left. The stone on the right was not able to be accessed due to a narrowed area in the distal ureter. A stent was left in place with plans to likely intervene on stone on right in the next 1 to 2 weeks. If visible on KUB would be candidate for lithotripsy versus ureteroscopy and stone extraction I attest to the content of the Intraoperative Record and any orders documented therein. Any exceptions are noted below.
--- NOTE | 2021-10-10 18:57 | Anesthesiology Progress Note ---
Date of Service October 10, 2021 Anesthesia Post Procedure Vital Signs Vital Signs: Temp Pulse Pulse Resp BP Pulse Ox O2 Del Method 10/10/21 18:46 36.5 C 75 16 134/84 96 Room Air 10/10/21 18:30 36.9 C 76 14 126/80 96 Room Air 10/10/21 18:20 80 17 148/76 H 95 Room Air 10/10/21 18:10 80 14 131/82 100 Oxymask 10/10/21 18:02 37.4 C 85 13 144/89 H 99 Oxymask 10/10/21 16:35 37 C 89 20 128/78 96 Room Air 10/10/21 14:34 36.8 C 75 16 142/82 H 95 Room Air 10/10/21 07:12 36.5 C 78 16 115/72 98 Room Air 10/09/21 19:40 36.8 C 67 16 151/71 H 97 Room Air O2 Flow Rate 10/10/21 18:46 10/10/21 18:30 10/10/21 18:20 10/10/21 18:10 11 10/10/21 18:02 11 10/10/21 16:35 10/10/21 14:34 10/10/21 07:12 10/09/21 19:40 Pain Intensity Left Flank: Pain Intensity: 3 Transfer of Care Handoff Completed per policy Notes Mental Status: alert / awake / arousable and participated in evaluation Patient Amnestic to Procedure: Yes Nausea / Vomiting: adequately controlled Pain: adequately controlled Airway Patency, RR, SpO2: stable & adequate BP & HR: stable & adequate Hydration State: stable & adequate Anesthetic Complications: no major complications apparent
[2021-10-10] MEDS: TAMSULOSIN HCL 0.4 MG CAP PO SCH (20:41)
--- NOTE | 2021-10-10 21:37 | Fluoroscopy Report ---
INTRAOPERATIVE RADIOGRAPHS CLINICAL HISTORY: Bilateral retrograde pyelogram and right ureteral stent placement. Fluoroscopy time: 29 seconds. FINDINGS: 6 spot fluoroscopic views of the abdomen are correlated with abdominal CT dated 10/09/2021. A catheter is advanced into the right renal collecting system. This shows mild right-sided hydronephr osis. A right ureteral stent is placed. A catheter is also advanced into the left renal pelvis. There is only mild fullness of the left renal collecting system. No left ureteral stent was seen on the pr ovided images. IMPRESSION: Intraoperative retrograde pyelogram images and right ureteral stent placement as above. S ee operative report for detailed findings. Electronically signed by: Raleigh Hinkle M.D. 10/10/2021 9:34 PM
[2021-10-11] MEDS: KETOROLAC TROMETHAMINE 15 MG/ML VIAL IV PRN (03:56)
[2021-10-11 07:37] LABS: Hematocrit (blood only) 39.7 % (34.1-44.9); Hemoglobin 13.2 g/dl (12.0-16.0); Mean Corpuscular Hemoglobin 28.7 pg (25.0-34.0); Mean Corpuscular Hgb Conc 33.2 g/dL (32.0-36.0); Mean Corpuscular Volume 86.3 fL (80.0-100.0); Mean Platelet Volume 10.4 fL (9.4-12.3); Platelet Count 246 K/uL (130-400); RDW Coefficient of Variation 12.7 % (11.5-14.5); White Blood Count 11.66 K/ul (4.8-10.8)
[2021-10-11] MEDS: ACETAMINOPHEN 325 MG TAB PO PRN (07:45)
[2021-10-11 08:01] LABS: BUN Creatinine Ratio 15.4 (10-20); Est GFR (African American) 126.9 ml/min; Est GFR (Non-African American) 109.5 ml/min; Potassium 3.9 mmol/L (3.5-5.1)
--- NOTE | 2021-10-11 08:39 | Urology Progress Note ---
Date of Service October 11, 2021 Assessment & Plan (1) Hydronephrosis with renal and ureteral calculous obstruction: Plan: - Pt POD#1 s/p bilateral ureteroscopy, left stone extraction and right ureteral stent placement. - Subjectively doing well, progressing as expected. - Afebrile, lab work reviewed - creatinine 0.65, WBC 11.66. - Generally tolerating right ureteral stent, notes some bother. - Okay to d/c from perspective when medically stable. - Will obtain KUB for stone visualization prior to discharge for stone management plan. - Recommend d/c with short course of PO antibiotics, Tamsulosin, prn Pyridium, prn oxybutynin, and prn pain medication for stent management. - Expected clinical course reviewed, all questions answered. - Discussed follow-up for treatment of right ureteral stone. - Will arrange outpatient follow-up with our service to discuss definitive stone management. Admission and Anticipated Discharge Date Admission Date: October 09, 2021 Supervising Physician Co-Signing Physician Notes Discussed patient with CHILO. Agree with plan. Subjective Patient seen and examined at bedside. She is awake, alert and resting in bed. No acute issues overnight. She reports right lower abdominal discomfort. Voiding spontaneously, notes some urgency and discomfort with voiding, hematuria clearing. No nausea or vomiting. No fever or chills. Review of Systems Constitutional: as per Subjective / HPI Gastrointestinal: as per Subjective / HPI Genitourinary: as per Subjective / HPI Physical Exam Constitutional: well developed and well nourished; no acute distress and not ill appearing Respiratory: normal respiratory effort and able to speak in complete sentences; no respiratory distress and no labored breathing Cardiovascular: Extremities: no pedal edema Gastrointestinal (Abdomen): Inspection/Auscultation: abdomen normal to inspection; abdomen not distended Neurologic: moves all extremities and awake Psychiatric: Orientation: alert and oriented x 3 Results & Data ([facility]) Vital Signs (Past 12 Hours) Vital Signs Temp Pulse Resp BP Pulse Ox O2 Del Method 10/11/21 06:46 36.5 C 68 16 111/72 93 10/10/21 21:34 36.7 C 80 18 109/72 94 Room Air PG Care Time/CCT Total # of Minutes Spent Total Time Spent with Patient: Total time spent is greater than 50% in coordination of care (as documented) at patient's floor/unit and/or counseling patient: Coding Level of Care Code 65589 Subseq Hosp Care Lvl 2 Diagnoses Hydronephrosis with renal and ureteral calculous obstruction N13.2
[2021-10-11] MEDS: PHENAZOPYRIDINE HCL 200 MG TAB PO PRN (09:24)
--- NOTE | 2021-10-11 09:26 | Discharge Summary ---
Date of Service October 11, 2021 Admission HPI Per Admitting Provider Patient is a 41-year-old female with PMH kidney stones requiring cystoscopy/stent in past presented to ER with complaint of left flank pain x2 days. Reports 2 days ago started with some mild aching to left back pain with radiation to left flank. Today severe pain to left flank with associated nausea. Denies vomiting. Reports urinary frequency. Tried Pyridium yesterday with minimal relief. Had leftover oral Toradol pills from kidney stone several years ago and took without much relief. Denies fever/chills, diaphoresis, vomiting, diarrhea, constipation, dysuria, hematuria, urinary retention, SMILEY, dizziness, syncope, vision changes, neck pain, CP, SOB, orthopnea, palpitations, cough, sore throat, choking, otalgia, rhinorrhea, paresthesias, weakness, extremity weakness, extremity edema, rashes. Admission Exam Per Admitting Provider General: no distress, overweight Head: normocephalic, atraumatic Eyes: conjunctiva non-injected, anicteric ENT: normal inspection external ears, nose, mucous membranes moist Neck: supple, trachea midline Lungs: clear, no respiratory distress, no wheezing/rhonchi/rales CV: RRR, no murmur, no pretibial edema Abd: normal BS, soft, +tenderness to left flank, no CVA tenderness to percussion Ext: no cyanosis, no calf tenderness Neuro: A&O x 3, no focal deficits noted, normal affect Skin: warm, dry Principal Diagnosis hydronephrosis with renal and ureteral calculous obstruction Discharge Exam Gen: WD/WN, NAD, sitting in bed, A&Ox3 HEENT: Normocephalic, atraumatic, conjunctivae moist, sclerae anicteric, mucous membranes moist Lung: Clear to Auscultation bilaterally, no wheezes/rales/rhonchi Heart: Regular rate, regular rhythm, no murmurs, rubs, or gallops Abdomen: Soft, NT, ND +BS x 4 Extremities: no edema Skin: Warm, no rash Discharge Data Allergies Allergy/AdvReac Type Severity Reaction Status Date / Time Penicillins Allergy Intermediate HIVES Verified 08/07/21 09:27 Consultations 10/09/21 16:36 ED Decision to Admit Stat 10/10/21 07:00 Consult Urology Routine Procedures Performed Operation Date: 10/10/21 11:55 Actual Procedures p Cystoscopy, Bilateral Retrograde Pyelogram, Bilateral Ureteroscopy, Right Stent Placement, Left Ureteral Stone Basket Extraction(Bilateral) - Jayden Wilson, Ordered Studies 10/09/21 14:49 CT abd pelvis wo con Stat 10/10/21 12:30 FL retrograde includes kub Routine Hospital Course (1) Hydronephrosis with renal and ureteral calculous obstruction: (2) Elevated blood pressure reading: Plan Patient is a 41-year-old female with PMH kidney stones requiring cystoscopy/stent in past presented to ER with complaint of left flank pain x2 days with associated nausea, urinary frequency found to have hydronephrosis with renal and ureteral calculus obstruction. Initial CT abdomen and pelvis: 4 mm obstructing calculus at the left vesicoureteral junction. This causes mild left hydroureteronephrosis. There is a 3 mm obstructing calculus in the right proximal ureter located just below the ureteropelvic junction. This causes minimal right-sided hydronephrosis. An additional punctate nonobstructing calculus is seen in each kidney. Seen by urolog and POD#1 s/p cystoscopy, bilateral ureteroscopy, possible bilateral stone treatment, and bilateral stent placement by Dr. Wilson. Discharge on 3 day course of Cipro due to instrumentation with PRN analgesics and urology follow up to discuss definitive stone management. Patient hemodynamically stable and comfortable at time of discharge home. Total Time Total Time Spent Total Time Spent (In Minutes): 35 Discharge Plan Discharge Items Patient Disposition: Home - Self-Care Reason For Visit: KIDNEY STONE Discharge Diagnosis: hydronephrosis with renal and ureteral calculous obstruction Activity: Resume your previous activity Non-emergency contact: Primary Care Provider and Urologist Call non-emergency contact if: you have any medication questions, your symptoms worsen, your pain is not controlled and your pain is worsening Follow-up/Referrals: Chaya Dixon CRNP [Nurse Practitioner] - 10/14/21 9:00 am Jocelyn Nicole MD [Primary Care Provider] - (Date & Time 10/15/2021 5:40 PM Provider Jocelyn Nicole MD [facility] ) Diet: Regular Addtl Attending Provider Instructions: You were admitted for obstructing renal and ureteral stones. Post op day 1 s/p cystoscopy, bilateral ureteroscopy, possible bilateral stone treatment, and bilateral stent placement by Dr. Wilson Complete 3 day course of Cipro antibiotic. Continue tamsulosin and as needed Pyridium, oxybutynin and PRN toradol and tylenol and ibuprofen Urology to arrange follow up to discuss definitive stone management OTHER INSTRUCTIONS: Seek medical attention if you have: * temperature above 101 * chest pain or trouble breathing * abdominal pain, nausea, vomiting * diarrhea, dark stools or bloody stools * any unanswered questions or concerns Call 911 if symptoms are severe. Please take good care of yourself. Call if you have any questions or problems. You can reach a [facility] hospitalist on duty at [facility] 24 hours a day by calling [phone]. Wilma Chaparro PA-C [facility] Hospitalist Pending Studies at Discharge: No Studies:: CT abd/pelvis: IMPRESSION: Intraoperative retrograde pyelogram images and right ureteral stent placement as above 1. There is a 4 mm obstructing calculus at the left vesicoureteral junction. This causes mild left hydroureteronephrosis. 2. There is a 3 mm obstructing calculus in the right proximal ureter located just below the ureteropelvic junction. This causes minimal right-sided hydronephrosis. 3. An additional punctate nonobstructing calculus is seen in each kidney. Stand-Alone Forms: My [facility], Work/School Release, Smoking Cessation Medications and DC Order Prescriptions: New phenazopyridine [Pyridium] 200 mg Tablet 200 mg PO TID PRN (Reason: pain) Qty: 14 0RF Rx Instructions: Take up to three times a day as needed for urinary pain. tamsulosin 0.4 mg Capsule 0.4 mg PO HS Qty: 30 0RF Rx Instructions: Take once daily in the evening. ciprofloxacin HCl 500 mg tablet 500 mg PO BID 3 Days Qty: 6 0RF Rx Instructions: Take twice daily for 3 days oxybutynin chloride 5 mg tablet 5 mg PO BID PRN (Reason: bladder spasms) Qty: 10 0RF Rx Instructions: Take twice daily as needed for bladder spasms ketorolac 10 mg tablet 10 mg PO Q8H PRN (Reason: pain) 3 Days Qty: 7 0RF Rx Instructions: Take up to 3 times daily for pain. Take with food. Continued Mirena 20 mcg/24 hours (7 yrs) 52 mg intrauterine device 1 device intrauterine DIRECTED multivitamin Tablet 1 tab PO DAILY Discharge Orders: Discharge Order (Routine); Ordered 10/11/21 Ordered By: Wilma Chaparro Admission Data Admit Date/Time: 10/09/21 17:03 Attending Provider: Fco Conway Admit Provider: Shivam Miller Primary Care Provider: Jocelyn Nicole Other Providers: Shivam Miller ; Abelino Mota Other Interventions: Discharge Summary Assessment (RN) Last Done: 10/11/21 11:40 Supervising Physician Co-Signing Physician Notes Patient was seen and examined independently at bedside. Chart reviewed. Case discussed with urology and Wilma Chaparro PA-C and agree with the documentation above with regards to physical exam, assessment and plan. 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 Pain is controlled. Feels good and comfortable to go home. Being discharged on antibiotics and analgesics per uro recommendation. F/u with uro as OP. F/u on stone analysis. Rest as per the note above.
--- NOTE | 2021-10-11 10:20 | XRay Report ---
KUB HISTORY: Follow up study in a patient with a right ureteral stent R proximal Stone visualization COMPARISON: CT abdomen and pelvis 10/09/2021. FINDINGS: Nonobstructive bowel gas pattern. Moderate fecal retention of the right hemicolon. IUD of t he mid pelvis. Renal shadows are partially obscured by bowel gas. The previously noted punctate bila teral renal calculi are not definitively seen. A right ureteral stent appears to be in satisfactory p ositioning. The previous noted right ureteral calculus is not definitively seen. Questioned stone jorge alfredo stone fragments overlie the distal right ureter within the pelvis. No pneumoperitoneum or pneumat osis. No fracture. IMPRESSION: 1. Satisfactory positioning of the right ureteral stent. Equivocal stone versus stone fragments overl randa the pelvic portion of the stent. 2. The patient's known punctate bilateral nephrolithiasis are obscured by bowel gas. ACT 112: Negative or not required by law. The above report was generated using voice recognition software. It may contain grammatical, syntax o r spelling errors. Electronically signed by: Taz Qureshi M.D. 10/11/2021 10:19 AM
[2021-10-17 11:31] LABS: Component 2 DNR; Source URETER STONE
== END 2021-10-11 12:55 | disposition home or self-care (01) | DRG 661 ==
LOC: ED 14:20 → SUATTDRO 17:03 → 3W 17:03